=== PATIENT | female | born 1965 | race Caucasian/White ===

== ENCOUNTER 2017-02-14 11:25 | Inpatient (IN) | payer OTHER ==
--- NOTE | 2017-02-14 12:08 | PDOC ---
*Physical Exam - Vital Signs Last Vital Signs Temp Pulse Resp BP Pulse Ox 98.0 F 86 20 206/109 100 02/14/17 11:39 02/14/17 11:39 02/14/17 11:39 02/14/17 11:39 02/14/17 11:39
--- NOTE | 2017-02-14 13:10 | PDOC ---
History of Present Illness - General History Source: Patient Exam Limitations: No Limitations - History of Present Illness Travel History: No Initial Comments: 02/14/17 13:07 51 yr female with c/o "bloating" for one week. Pt denies fever neg NVD. neg abdominal surgeries. Pt has DM, obesity, high cholesterol. Pt denies travel. 02/14/17 13:12 Timing/Duration: reports: constant Quality: reports: mild Abdominal Pain Onset Location: reports: generalized abdomen Pain Radiation: reports: no radiation Activities at Onset: reports: none <Marisol Hughes - Last Filed: 02/14/17 18:59> <Orquidea Cavanaugh - Last Filed: 02/14/17 23:42> - General Chief Complaint: Pain Stated Complaint: BLOATED, ABD PAIN Time Seen by Provider: 02/14/17 11:58 Past History - Past Medical History Asthma: No Cardiac Disorders: No Diabetes: Yes HTN: Yes - Surgical History Abdominal Surgery: Yes - Suicide/Smoking/Psychosocial Hx Smoking Status: No Smoking History: Never smoked Number of Cigarettes Smoked Daily: 0 Hx Alcohol Use: No Drug/Substance Use Hx: No Substance Use Type: None <Marisol Hughes - Last Filed: 02/14/17 18:59> <Orquidea Cavanaugh - Last Filed: 02/14/17 23:42> - Past Medical History Allergies/Adverse Reactions: Allergies Allergy/AdvReac Type Severity Reaction Status Date / Time No Known Allergies Allergy Verified 02/14/17 11:42 Home Medications: Ambulatory Orders Aspirin [ASA -] 81 mg PO DAILY 06/07/15 Chlorthalidone [Hygroton -] 25 mg PO DAILY 06/07/15 Glipizide [Glucotrol -] 5 mg PO BID 06/07/15 Ibuprofen [Motrin -] 800 mg PO TID PRN 06/07/15 Metformin HCl [Metformin HCl ER] 1,000 mg PO BID 06/07/15 Ramipril [Altace] 10 mg PO DAILY 06/07/15 Amlodipine Besylate [Norvasc -] 10 mg PO DAILY #30 tablet 06/11/15 Clindamycin [Cleocin -] 300 mg PO Q6HPO #40 capsule 06/11/15 Abd/GI Specific PMHX - Complaint Specific PMHX Colitis: No Diverticulitis: No Gall Bladder Disease: No GERD: No Hepatitis: No Irritable Bowel Synd (IBS): No Pancreatitis: No GI Ulcer Disease: No <Marisol Hughes - Last Filed: 02/14/17 18:59> Review of Systems - Review of Systems Able to Perform ROS?: Yes Is the patient limited Wolof proficient: No Constitutional: No: Symptoms Reported HEENTM: No: Symptoms Reported, Dental Problems Respiratory: No: Symptoms reported Cardiac (ROS): No: Symptoms Reported ABD/GI: Yes: Symptoms Reported, See HPI <Marisol Hughes - Last Filed: 02/14/17 18:59> *Physical Exam - Vital Signs Last Vital Signs Temp Pulse Resp BP Pulse Ox 98.0 F 86 20 206/109 100 02/14/17 11:39 02/14/17 11:39 02/14/17 11:39 02/14/17 11:39 02/14/17 11:39 - Physical Exam General Appearance: Yes: Nourished, Appropriately Dressed HEENT: positive: EOMI, ELLA, Normal ENT Inspection, TMs Normal, Pharynx Normal Neck: positive: Supple. negative: Tender Respiratory/Chest: positive: Lungs Clear, Normal Breath Sounds. negative: Chest Tender Cardiovascular: positive: Regular Rhythm, Regular Rate Gastrointestinal/Abdominal: positive: Protuberent, Distended. negative: Flat, Rebound Lymphatic: negative: Adenopathy Musculoskeletal: positive: Normal Inspection Extremity: positive: Normal Capillary Refill, Normal Inspection, Normal Range of Motion Integumentary: positive: Normal Color, Dry, Warm Neurologic: positive: Fully Oriented, Alert, Normal Mood/Affect, Normal Response , Motor Strength 5/5 <Marisol Hughes - Last Filed: 02/14/17 18:59> - Vital Signs Last Vital Signs Temp Pulse Resp BP Pulse Ox 98.0 F 86 20 206/109 100 02/14/17 11:39 02/14/17 11:39 02/14/17 11:39 02/14/17 11:39 02/14/17 11:39 <Orquidea Cavanaugh - Last Filed: 02/14/17 23:42> ED Treatment Course - LABORATORY CBC & Chemistry Diagram: 02/14/17 12:50 02/14/17 12:50 <Marisol Hughes - Last Filed: 02/14/17 18:59> - LABORATORY CBC & Chemistry Diagram: 02/14/17 12:50 02/14/17 12:50 - ADDITIONAL ORDERS Additional order review: Laboratory Results 02/14/17 02/14/17 02/14/17 18:50 17:00 12:50 Sodium 138 Potassium 4.7 D Chloride 108 H Carbon Dioxide 26 Anion Gap 4 L BUN 13 D Creatinine 0.5 L D Creat Clearance w eGFR > 60 Random Glucose 126 H Calcium 7.9 L Total Bilirubin 1.2 H D AST 70 H D ALT 37 Alkaline Phosphatase 198 H D Total Protein 7.0 Albumin 2.5 L Lipase 64 L Serum , Qual Negative Urine Color Cancelled Urine Appearance Cancelled Urine pH Cancelled Ur Specific [place] Cancelled Urine Protein Cancelled Urine Glucose (UA) Cancelled Urine Ketones Cancelled Urine Blood Cancelled Urine Nitrite Cancelled Urine Bilirubin Cancelled Urine Urobilinogen Cancelled Ur Leukocyte Esterase Cancelled 02/14/17 12:50 RBC 3.89 MCV 96.2 H MCHC 33.2 RDW 15.1 D MPV 8.4 Neutrophils % 59.3 D Lymphocytes % 30.6 D Monocytes % 8.4 Eosinophils % 1.3 Basophils % 0.4 <Orquidea Cavanaugh - Last Filed: 02/14/17 23:42> Medical Decision Making - Medical Decision Making 02/14/17 13:15 cc: "abdominal bloating" last BM yesterday denies nvd no fever or chills pt denies history of liver disease, pt is a NIDDM. pt denies NVD will check labs CT abdomen 02/14/17 17:31 pt denies pain states she is comfortable. BP 170/98 left arm HR 67 RR16 02/14/17 18:[address] 02/14/17 18:59 <Marisol Hughes - Last Filed: 02/14/17 18:59> *DC/Admit/Observation/Transfer <Marisol Hughes - Last Filed: 02/14/17 18:59> <Orquidea Cavanaugh - Last Filed: 02/14/17 23:42> Diagnosis at time of Disposition: Hepatic cirrhosis Qualifiers: Hepatic cirrhosis type: unspecified hepatic cirrhosis Ascites presence: with ascites Qualified Code(s): K74.60 - Unspecified cirrhosis of liver - Referrals - Patient Instructions
[2017-02-14 13:33] LABS: BASOPHIL 0.4 % (0-2.0); EOSINOPHIL 1.3 % (0-4.5); MCH 31.9 pg (25.7-33.7); MCHC 33.2 g/dl (32.0-36.0); MEAN CELL VOLUME 96.2 fl (80-96); MEAN PLT VOLUME 8.4 fl (7.5-11.1); NEUTROPHILS 59.3 % (42.8-82.8); PLATELET COUNT 150 K/MM3 (134-434); RDW 15.1 % (11.6-15.6); WHITE BLOOD COUNT 3.7 K/mm3 (4.0-10.0)
[2017-02-14 14:51] LABS: ALBUMIN 2.5 g/dl (3.4-5.0); ANION GAP 4 (8-16); CALCIUM 7.9 mg/dL (8.5-10.1); CO2 26 mmol/L (21-32); GLUCOSE,RANDOM 126 mg/dL (74-106)
[2017-02-14 14:55] LABS: ALK PHOS 198 U/L (45-117); BILIRUBIN,TOTAL 1.2 mg/dL (0.2-1.0); CREATININE 0.5 mg/dL (0.55-1.02); SGPT/ALT 37 U/L (12-78)
[2017-02-14 15:03] LABS: SGOT/AST 70 U/L (15-37)
--- NOTE | 2017-02-14 19:25 | PDOC ---
*Physical Exam - Vital Signs Last Vital Signs Temp Pulse Resp BP Pulse Ox 98.0 F 86 20 206/109 100 02/14/17 11:39 02/14/17 11:39 02/14/17 11:39 02/14/17 11:39 02/14/17 11:39 - Physical Exam Comments: 02/14/17 19:24 Sign-out received from outgoing ER provider Saul. Pt interviewed and examined. At this time patient reports that she is completely asymptomatic with no abdominal pain, shortness of breath, chest pain , palpitations, nausea, vomiting. Patient has no complaints. Ancillary studies reviewed. Awaiting CT. Laboratory Tests 02/14/17 02/14/17 12:50 12:50 WBC 3.7 L D Total Bilirubin 1.2 H D Albumin 2.5 L 02/14/17 19:56 CT results: Hepatic cirrhosis is identified with an associated large amount of ascites. Varices are noted as well as mild splenomegaly. Concentric subcutaneous edema is visualized at the level of the abdomen and pelvis. There is equivocal mild concentric wall edema along the length of the ascending colon - ? artifactual due to underdistention. ? Possible infectious/ inflammatory colitis, ? colopathy (secondary to previously described hepatic disease). Cholelithiasis is seen without obvious CT evidence of acute cholecystitis. Read by Jeffrey Ram MD. Patient noted to have 206/109 BP on arrival (8 hours prior). Repeat BP at this time is 173/78. Discussed case with on-call MD Pereira (covering for PCP MD Rebolledo), who accepts patient to med/surg inpatient services under Dr. Rebolledo. ED Treatment Course - LABORATORY CBC & Chemistry Diagram: 02/14/17 12:50 02/14/17 12:50 - ADDITIONAL ORDERS Additional order review: Laboratory Results 02/14/17 02/14/17 02/14/17 18:50 17:00 12:50 Sodium 138 Potassium 4.7 D Chloride 108 H Carbon Dioxide 26 Anion Gap 4 L BUN 13 D Creatinine 0.5 L D Creat Clearance w eGFR > 60 Random Glucose 126 H Calcium 7.9 L Total Bilirubin 1.2 H D AST 70 H D ALT 37 Alkaline Phosphatase 198 H D Total Protein 7.0 Albumin 2.5 L Lipase 64 L Serum , Qual Negative Urine Color Cancelled Urine Appearance Cancelled Urine pH Cancelled Ur Specific [place] Cancelled Urine Protein Cancelled Urine Glucose (UA) Cancelled Urine Ketones Cancelled Urine Blood Cancelled Urine Nitrite Cancelled Urine Bilirubin Cancelled Urine Urobilinogen Cancelled Ur Leukocyte Esterase Cancelled 02/14/17 12:50 RBC 3.89 MCV 96.2 H MCHC 33.2 RDW 15.1 D MPV 8.4 Neutrophils % 59.3 D Lymphocytes % 30.6 D Monocytes % 8.4 Eosinophils % 1.3 Basophils % 0.4 *DC/Admit/Observation/Transfer Diagnosis at time of Disposition: Hepatic cirrhosis Qualifiers: Hepatic cirrhosis type: unspecified hepatic cirrhosis Ascites presence: with ascites Qualified Code(s): K74.60 - Unspecified cirrhosis of liver - Discharge Dispostion Admit: Yes - Referrals - Patient Instructions - Post Discharge Activity
[2017-02-14] MEDS ORDERED: METRONIDAZOLE 500 MG PREMIXED 100 ML IVPB ONE ×2 (20:27→22:46)
[2017-02-14] MEDS ORDERED: CIPROFLOXACIN 400 MG/D5W 200 ML IVPB ONE (20:27)
[2017-02-15] MEDS ORDERED: KETOROLAC TROMETHAMINE 30 MG/1 ML VIAL IVPUSH ONE (05:14)
[2017-02-15] MEDS ORDERED: KETOROLAC TROMETHAMINE 30 MG/1 ML VIAL ONE (05:15)
--- NOTE | 2017-02-15 09:52 | CON.GI ---
Consult Consult Specialty:: GI: Dr. Epps for Dr. Denny Referred by:: Dr. Miladis Rebolledo Reason for Consultation:: Ascites - History of Present Illness Chief Complaint: [employer]: [id number] utilized: "my stomach was inflamed" History of Present Illness: 51 y/o F admitted through [facility] for evaluation of abdominal bloating. She states that it has been occurring for 1 week and has never occurred before. she denies any abdominal pain, fevers, chills, nausea, vomiting, change in bowel habits, unintentional weight loss. ER work-up revealed abnormal liver chemistries and CT scan of the abd/pelvis revealed a large amount of ascites and a cirrhotic appearing liver. She denies a personal history of liver disease , alcohol/IVDA, blood transfusions, family history of liver disease. She is from [place] and has been living in the [place] for 20 years. There has been no recent travel. She was admitted to [facility] in 2016 for treatment of a left sided abdominal wall abscess, at which time ahe was noted to have elevated ALP/AST and have a low albumin. There is no previous abdominal imaging at [facility] to to review. She has never had an upper endoscopy or colonoscopy. There is no family history of colorectal cancer or other GI malignancy. 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 (year): History of Recent Travel: No Home Medications - Allergies Allergies/Adverse Reactions: Allergies Allergy/AdvReac Type Severity Reaction Status Date / Time No Known Allergies Allergy Verified 02/14/17 11:42 - Home Medications Home Medications: Ambulatory Orders Aspirin [ASA -] 81 mg PO DAILY 06/07/15 Chlorthalidone [Hygroton -] 25 mg PO DAILY 06/07/15 Glipizide [Glucotrol -] 5 mg PO BID 06/07/15 Ibuprofen [Motrin -] 800 mg PO TID PRN 06/07/15 Metformin HCl [Metformin HCl ER] 1,000 mg PO BID 06/07/15 Ramipril [Altace] 10 mg PO DAILY 06/07/15 Amlodipine Besylate [Norvasc -] 10 mg PO DAILY #30 tablet 06/11/15 Clindamycin [Cleocin -] 300 mg PO Q6HPO #40 capsule 06/11/15 Family Disease History - Family Disease History Family Disease History: Other: Father ( 78 "natural causes"), Mother (: 65: "Natural causes"), Brother (2, healthy), Sister (2, healthy), Son (3, healthy) Other Family History: Other family history as noted in HPI Review of Systems - Review of Systems Constitutional: denies: Chills, Malaise, Unintentional Wgt. Loss Cardiovascular: reports: Edema. denies: Chest Pain Respiratory: denies: SOB Gastrointestinal: reports: Bloating. denies: Abdominal Pain, Constipation, Diarrhea, Dysphagia, Indigestion, Melena, Nausea, Rectal Bleeding, Vomiting, Vomiting Blood Physical Exam-GI Vital Signs: Vital Signs Temperature 98.1 F 02/15/17 05:08 Pulse Rate 67 02/15/17 06:53 Respiratory Rate 18 02/15/17 06:53 Blood Pressure 102/75 02/15/17 06:53 O2 Sat by Pulse Oximetry (%) 97 02/15/17 06:53 Constitutional: Yes: Calm Eyes: No: Sclera Icterus Cardiovascular: Yes: Regular Rate and Rhythm, Murmur (2/6 systolic murmur at the RSB>LSB) Respiratory: Yes: Diminished (at bases bilaterally) Gastrointestinal Inspection: Yes: Distention, Scars (circumferential scar right upper abdomen, left upper abdomen and pelvis), Other (abdominal wall edema along lower abdomen) ...Auscultate: Yes: Normoactive Bowel Sounds ...Palpate: No: Hepatomegaly, Splenomegaly, Tenderness Edema: Yes Edema: LLE: 1+ (foot to below knee), RLE: 1+ (foor to below knee) Neurological: Yes: Alert, Oriented. No: [employer]ix[employer] Labs: CBC, BMP 02/14/17 12:50 02/14/17 12:50 Hepatic Panel Total Bilirubin 1.2 mg/dL (0.2-1.0) H D 02/14/17 12:50 AST 70 U/L (15-37) H D 02/14/17 12:50 ALT 37 U/L (12-78) 02/14/17 12:50 Alkaline Phosphatase 198 U/L (45-117) H D 02/14/17 12:50 Albumin 2.5 g/dl (3.4-5.0) L 02/14/17 12:50 MELDNa: 9 Imaging - Results Cat Scan: Report Reviewed, Image Reviewed Problem List - Problems (1) Ascites Assessment/Plan: New onset ascites: abnormal liver chemistries in the past / present along with hypoalbuminemia and imaging all supportive of liver cirrhosis. Unclear etiology as of yet. ? FISHER given other comorbidities. Infectious etiologies / autoimmune processes in differential as well. Plan for now: Diagnostic / therapeutic paracentesis with fluid sent for culture, cell count, AFB culture/smear, cytology, total protein, albumin, LDH,Glucose 2g Low Na diet Hepatitis Serologies for hep A/B/C ordered with continued outpatient work-up Will need Q 6 month Hepatic US to screen for HCC Discussed plan with Dr. Rebolledo Discussed the findings with Ms. 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 She is aware that she will need continued follow-up. She should also ideally be evaluated for liver transplantation given her decompensated cirrhosis however her citizenship status may be prohibitive. this will need to be looked into further. Code(s): R18.8 - OTHER ASCITES Qualifiers: Ascites type: other type Qualified Code(s): R18.8 - Other ascites; R18.8 - Other ascites
[2017-02-15 12:16] LABS: INR 1.08 (0.82-1.09); PROTHROMBIN TIME (PATIENT) 12.2 SEC (9.98-11.88)
[2017-02-15 12:19] LABS: ACTIVATED PTT 30.5 SECONDS (26.9-34.4)
--- NOTE | 2017-02-15 12:58 | EKG ---
Test Reason : Blood Pressure : / mmHG Vent. Rate : 077 BPM Atrial Rate : 077 BPM P-R Int : 174 ms QRS Dur : 088 ms QT Int : 432 ms P-R-T Axes : 019 011 -03 degrees QTc Int : 488 ms NORMAL SINUS RHYTHM NONSPECIFIC T WAVE ABNORMALITY ABNORMAL ECG WHEN COMPARED WITH ECG OF 07-JUN-2015 18:03, NONSPECIFIC T WAVE ABNORMALITY, WORSE IN INFERIOR LEADS Confirmed by JULIA DOLAN, NUBIA ([id number]) on 02/15/2017 12:57:54 PM Referred By: Confirmed By:NUBIA DUMONT MD
--- NOTE | 2017-02-15 14:11 | HP ---
DATE OF ADMISSION: 02/15/2017 HISTORY OF PRESENT ILLNESS: This is a patient known to have hypertension, diabetes, came to the emergency room last night with complaints of abdominal distention. In the emergency room it was found out that the patient had ascites and esophageal varices and enlarged spleen. The patient was therefore admitted with the diagnosis of possible cirrhosis of the liver. PAST MEDICAL HISTORY: History of cirrhosis in the past. SOCIAL HISTORY: The patient is with children and she lives with her . PHYSICAL EXAMINATION: Vital signs: Blood pressure is 130/80, pulse 88, respirations 20, temperature 98. General: Alert and oriented, minimal distress with increased abdominal girth. HEENT: Unremarkable. Neck: Supple, no JVD. Lungs: Clear. Heart: S1, S2 normal. No S3 or S4. Abdomen: Distended, no tenderness. Extremities: Legs with minimal edema present. LABORATORY DATA: Labs are reviewed. Chest x-ray to be reviewed. IMPRESSION: Ascites, possible cirrhosis of the liver, diabetes. PLAN: Admit to regular floor, GI consultation, continue her present medication. Will follow. Sherri [id number]
[2017-02-15 18:58] VITALS: BMI 42.5
[2017-02-16 01:19] LABS: URINE APPEARANCE SLCLOUDY; URINE BILIRUBIN NEGATIVE (NEGATIVE); URINE BLOOD NEGATIVE (NEGATIVE); URINE COLOR YELLOW; URINE GLUCOSE (UA) NEGATIVE (NEGATIVE); URINE KETONE NEGATIVE (NEGATIVE); URINE NITRITE NEGATIVE (NEGATIVE); URINE UROBILINOGEN 4.0 E.U/dl mg/dL (0.2-1.0)
[2017-02-16 01:37] LABS: URINE PROTEIN 1+ (NEGATIVE)
[2017-02-16 02:12] LABS: URINE BACTERIA RARE /hpf (NONE SEEN); URINE RBC <1 /hpf (0-3)
[2017-02-16] MEDS: metFORMIN HCL 500 MG TABLET (FP) PO SCH ×2 (06:05→16:48)
[2017-02-16] MEDS: glipiZIDE 5 MG TABLET (FP) PO SCH ×2 (06:06→16:49)
[2017-02-16 09:22] LABS: PERITONEAL FLUID LYMPHOCYTE 52 %; PERITONEAL FLUID MACROPHAGE 41 %; PERITONEAL FLUID MESOTHELIAL 1 %; PERITONEAL FLUID NEUTROPHIL 6 %
[2017-02-16 09:33] LABS: URINE WBC 1 /hpf (3-5)
--- NOTE | 2017-02-16 09:36 | PN ---
Progress Note, Physician Chief Complaint: Feels better History of Present Illness: Admitted with massive ascitis Diabetics and HTN Dr Calvert.s GI consult appreciated - Current Medication List Current Medications: Active Medications Amlodipine Besylate (Norvasc -) 10 mg PO DAILY [facility] Furosemide (Lasix -) 40 mg PO DAILY [facility] Glipizide (Glucotrol -) 5 mg PO BID@0700,1630 [facility] Last Admin: 02/16/17 06:06 Dose: 5 mg Metformin HCl (Glucophage -) 1,000 mg PO BID@0700,1630 [facility] Last Admin: 02/16/17 06:05 Dose: 1,000 mg Ramipril (Altace -) 10 mg PO DAILY [facility] Spironolactone (Aldactone -) 100 mg PO DAILY [facility] - Objective Vital Signs: Vital Signs Temperature 98.4 F 02/16/17 06:40 Pulse Rate 78 02/16/17 06:40 Respiratory Rate 20 02/16/17 06:40 Blood Pressure 122/61 02/16/17 06:40 O2 Sat by Pulse Oximetry (%) 98 02/15/17 22:00 Constitutional: Yes: Calm Eyes: Yes: WNL HENT: Yes: WNL Neck: Yes: WNL Cardiovascular: Yes: WNL Respiratory: Yes: WNL Gastrointestinal: Yes: Ascites, Hepatomegaly, Splenomegaly ...Rectal Exam: Yes: Deferred Genitourinary: Yes: WNL Breast(s): Yes: WNL Musculoskeletal: Yes: WNL Edema: No Neurological: Yes: Alert Labs: INR, PTT INR 1.08 (0.82-1.09) 02/15/17 11:58 Assessment/Plan continue present meds Will discuss with Dr Roberto
[2017-02-16 09:41] LABS: URINE LEUK ESTERASE Negative (NEGATIVE)
[2017-02-16] MEDS: SPIRONOLACTONE 25 MG TABLET (FP) PO SCH (10:36)
[2017-02-16] MEDS: RAMIPRIL 5 MG CAPSULE (FP) PO SCH (10:36)
[2017-02-16] MEDS: FUROSEMIDE 40 MG TABLET (FP) PO SCH (10:36)
[2017-02-16] MEDS: amLODIPine BESYLATE 10 MG TABLET (FP) PO SCH (10:36)
[2017-02-16 11:11] LABS: BASOPHIL 0.4 % (0-2.0); EOSINOPHIL 2.1 % (0-4.5); MCH 31.6 pg (25.7-33.7); MCHC 32.8 g/dl (32.0-36.0); MEAN CELL VOLUME 96.3 fl (80-96); MEAN PLT VOLUME 7.6 fl (7.5-11.1); NEUTROPHILS 51.8 % (42.8-82.8); PLATELET COUNT 140 K/MM3 (134-434); WHITE BLOOD COUNT 3.1 K/mm3 (4.0-10.0)
[2017-02-16 11:44] LABS: ALBUMIN 2.3 g/dl (3.4-5.0); BILIRUBIN,DIRECT 0.4 mg/dL (0.0-0.2); BILIRUBIN,TOTAL 0.7 mg/dL (0.2-1.0); TOT PROT 6.8 g/dl (6.4-8.2)
--- NOTE | 2017-02-16 13:44 | PN ---
GI Progress Note Subjective: For Dr. Denny No acute events No abdominal pain States feeling well S/P Paracentesis yesterday: ? 4 L removed Peritoneal fluid analysis reviewed below - Objective Vital Signs: Vital Signs Temperature 98 F 02/16/17 10:00 Pulse Rate 73 02/16/17 10:00 Respiratory Rate 18 02/16/17 10:00 Blood Pressure 147/86 02/16/17 10:00 O2 Sat by Pulse Oximetry (%) 99 02/16/17 09:00 Constitutional: Calm Eyes: No: Sclera Icterus Cardiovascular: Yes: Regular Rate and Rhythm, Murmur Respiratory: Yes: CTA Bilaterally Gastrointestinal Inspection: Yes: Distention, Other (Large Pannus) ...Auscultate: Yes: Normoactive Bowel Sounds ...Palpate: No: Hepatomegaly, Splenomegaly, Tenderness ...Percussion: No: Tympanitic Edema: Yes Edema: LLE: 1+, RLE: 1+ Neurological: No: [employer] Labs: CBC, BMP 02/16/17 10:50 INR, PTT INR 1.08 (0.82-1.09) 02/15/17 11:58 Laboratory Tests 02/15/17 15:00 Peritoneal WBC 271 Peritoneal RBC 517 Periton Neutrophils 6 Periton Lymphocytes 52 Periton Mesothelial 1 Periton Macrophages 41 Peritoneal Tot Protein 2 Peritoneal Albumin 1 Peritoneal LDH 82 Peritoneal Glucose 112 Peritoneal Amylase 14 Peritoneal Triglycerid 46 SAA.5 ANC: 16 Hepatic Panel Total Bilirubin 0.7 mg/dL (0.2-1.0) D 02/16/17 10:50 Direct Bilirubin 0.4 mg/dL (0.0-0.2) H 02/16/17 10:50 AST 68 U/L (15-37) H 02/16/17 10:50 ALT 39 U/L (12-78) 02/16/17 10:50 Alkaline Phosphatase 204 U/L (45-117) H 02/16/17 10:50 Albumin 2.3 g/dl (3.4-5.0) L 02/16/17 10:50 Laboratory Tests 02/16/17 06:00 Tumor Marker AFP Pending Microbiology 02/15/17 15:00 Peritoneal Fluid BETH Preparation - Preliminary 02/15/17 15:00 Peritoneal Fluid Fungal Culture - Preliminary 02/15/17 15:00 Peritoneal Fluid AFB Smear Concentration - Preliminary 02/15/17 15:00 Peritoneal Fluid Mycobacterial Culture - Preliminary - ....Imaging Other: Report Reviewed Problem List - Problems (1) Ascites Assessment/Plan: Peritoneal fluid analysis consistent with portal hypertension as likely etiology No evidence of neutrocytic SBP. Await Culture Follow-up remaining fluid studies including cytology Follow-up AFP tumor marker Hep C Ab was ordered yesterday however not drawn. I reordered the Hep C Ab Daily weights/ I's and O's. Started in diuresis today Stressed 2g Low Na diet to patient Will need Q 6 month Liver US / AFP tumor marker to screen for HCC Will need outpatient follow-up: Dr. Denny's office information was added to discharge plan Dr. Denny will be covering the patient this evening. Dr. Esqueda will be covering the remainder of the weekend. [phone] Code(s): R18.8 - OTHER ASCITES Qualifiers: Ascites type: other type Qualified Code(s): R18.8 - Other ascites; R18.8 - Other ascites
[2017-02-17] MEDS: metFORMIN HCL 500 MG TABLET (FP) PO SCH ×2 (06:19→17:04)
[2017-02-17] MEDS: glipiZIDE 5 MG TABLET (FP) PO SCH ×2 (06:20→17:03)
[2017-02-17] MEDS: amLODIPine BESYLATE 10 MG TABLET (FP) PO SCH (09:58)
[2017-02-17] MEDS: RAMIPRIL 5 MG CAPSULE (FP) PO SCH (09:58)
[2017-02-17] MEDS: SPIRONOLACTONE 25 MG TABLET (FP) PO SCH (09:58)
[2017-02-17] MEDS: FUROSEMIDE 40 MG TABLET (FP) PO SCH (09:58)
[2017-02-18] MEDS: glipiZIDE 5 MG TABLET (FP) PO SCH ×2 (06:21→17:34)
[2017-02-18] MEDS: metFORMIN HCL 500 MG TABLET (FP) PO SCH (06:21)
[2017-02-18] MEDS ORDERED: POTASSIUM CHLORIDE ORAL LIQUID 20 MEQ/15 ML PO ONE ×3 (08:25→09:00)
--- NOTE | 2017-02-18 08:30 | PN ---
Progress Note, Physician Chief Complaint: No new complaints denies any nausea, vomiting diarrhea or constipation. History of Present Illness: 51 yrs old f with morbid obesity h/o HTN, T2DM and Dyslipedemia admitted with massive ascites of unknown etiology. underwent therapeutic paracentesis by GI. - Current Medication List Current Medications: Active Medications Amlodipine Besylate (Norvasc -) 10 mg PO DAILY [facility] Last Admin: 02/17/17 09:58 Dose: 10 mg Furosemide (Lasix -) 40 mg PO DAILY [facility] Last Admin: 02/17/17 09:58 Dose: 40 mg Glipizide (Glucotrol -) 5 mg PO BID@0700,1630 [facility] Last Admin: 02/18/17 06:21 Dose: 5 mg Metformin HCl (Glucophage -) 1,000 mg PO BID@0700,1630 [facility] Last Admin: 02/18/17 06:21 Dose: 1,000 mg Ramipril (Altace -) 10 mg PO DAILY [facility] Last Admin: 02/17/17 09:58 Dose: 10 mg Spironolactone (Aldactone -) 100 mg PO DAILY [facility] Last Admin: 02/17/17 09:58 Dose: 100 mg - Objective Vital Signs: Vital Signs Temperature 98.2 F 02/18/17 06:00 Pulse Rate 78 02/18/17 06:00 Respiratory Rate 20 02/18/17 06:00 Blood Pressure 140/78 02/18/17 06:00 O2 Sat by Pulse Oximetry (%) 96 02/17/17 21:00 Middle aged woman not in distress denies any abd pain , nausea or vomiting HEENT: Mm moist, no anemia, PERRLA, EOMI NECK: No JVD No Bruit CHEST: CTA B/L ABD: Distention +, Soft, non tender Bs + EXT: Edema feet +, no calf tenderness, Pulses +2 [employer]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 focal Labs: CBC, BMP 02/16/17 10:50 INR, PTT INR 1.08 (0.82-1.09) 02/15/17 11:58 Problem List - Problems (1) Ascites Assessment/Plan: Patient present with massiveascites underwent diagnostic and therapeutic paracentesis 4 Ltrs removed no SBP , most likely FISHER due to morbid ocesity F/U pending W/U cont Aldactone and Lasix F/U BMP daily, low Na Diet Code(s): R18.8 - OTHER ASCITES Qualifiers: Ascites type: other type Qualified Code(s): R18.8 - Other ascites; R18.8 - Other ascites (2) HTN (hypertension) Assessment/Plan: Well controlled cont current medications Code(s): I10 - ESSENTIAL (PRIMARY) HYPERTENSION Qualifiers: Hypertension type: essential hypertension Qualified Code(s): I10 - Essential (primary) hypertension; I10 - Essential (primary) hypertension; I10 - Essential (primary) hypertension (3) T2DM (type 2 diabetes mellitus) Assessment/Plan: at present FS are controlled F/U HbA!C Hold Metformin whilein the Hospital f/u FS Code(s): E11.9 - TYPE 2 DIABETES MELLITUS WITHOUT COMPLICATIONS (4) Morbid obesity with BMI of 40.0-44.9, adult Assessment/Plan: Nutrition consult as out patient Code(s): E66.01 - MORBID (SEVERE) OBESITY DUE TO EXCESS CALORIES Z68.41 - BODY MASS INDEX (BMI) 40.0-44.9, ADULT
--- NOTE | 2017-02-18 08:37 | PN ---
Progress Note, Physician Chief Complaint: No new complaints denies any nausea, vomiting diarrhea or constipation. History of Present Illness: 51 yrs old f with morbid obesity h/o HTN, T2DM and Dyslipedemia admitted with massive ascites of unknown etiology. underwent therapeutic paracentesis by GI. - Current Medication List Current Medications: Active Medications Amlodipine Besylate (Norvasc -) 10 mg PO DAILY [facility] Last Admin: 02/17/17 09:58 Dose: 10 mg Furosemide (Lasix -) 40 mg PO DAILY [facility] Last Admin: 02/17/17 09:58 Dose: 40 mg Glipizide (Glucotrol -) 5 mg PO BID@0700,1630 [facility] Last Admin: 02/18/17 06:21 Dose: 5 mg Potassium Chloride (Potassium Chloride Oral Liquid) 40 meq PO ONCE ONE Stop: 02/18/17 08:27 Ramipril (Altace -) 10 mg PO DAILY [facility] Last Admin: 02/17/17 09:58 Dose: 10 mg Spironolactone (Aldactone -) 100 mg PO DAILY [facility] Last Admin: 02/17/17 09:58 Dose: 100 mg - Objective Vital Signs: Vital Signs Temperature 98.2 F 02/18/17 06:00 Pulse Rate 78 02/18/17 06:00 Respiratory Rate 20 02/18/17 06:00 Blood Pressure 140/78 02/18/17 06:00 O2 Sat by Pulse Oximetry (%) 96 02/17/17 21:00 Labs: CBC, BMP 02/16/17 10:50 INR, PTT INR 1.08 (0.82-1.09) 02/15/17 11:58 Problem List - Problems (1) Ascites Assessment/Plan: Patient present with massiveascites underwent diagnostic and therapeutic paracentesis 4 Ltrs removed no SBP , most likely FISHER due to morbid ocesity F/U pending W/U cont Aldactone and Lasix F/U BMP daily, low Na Diet Code(s): R18.8 - OTHER ASCITES Qualifiers: Ascites type: other type Qualified Code(s): R18.8 - Other ascites; R18.8 - Other ascites (2) HTN (hypertension) Assessment/Plan: Well controlled cont current medications Code(s): I10 - ESSENTIAL (PRIMARY) HYPERTENSION Qualifiers: Hypertension type: essential hypertension Qualified Code(s): I10 - Essential (primary) hypertension; I10 - Essential (primary) hypertension; I10 - Essential (primary) hypertension (3) T2DM (type 2 diabetes mellitus) Assessment/Plan: at present FS are controlled F/U HbA1C Hold Metformin while in the Hospital f/u FS Code(s): E11.9 - TYPE 2 DIABETES MELLITUS WITHOUT COMPLICATIONS (4) Morbid obesity with BMI of 40.0-44.9, adult Assessment/Plan: Nutrition consult as out patient Code(s): E66.01 - MORBID (SEVERE) OBESITY DUE TO EXCESS CALORIES Z68.41 - BODY MASS INDEX (BMI) 40.0-44.9, ADULT (5) Hypokalemia Assessment/Plan: Repleted F/U BMP and magnesium level. Code(s): E87.6 - HYPOKALEMIA
[2017-02-18 08:47] LABS: URINE APPEARANCE CLOUDY; URINE BILIRUBIN NEGATIVE (NEGATIVE); URINE BLOOD 1+ (NEGATIVE); URINE COLOR DKYELLOW; URINE GLUCOSE (UA) NEGATIVE (NEGATIVE); URINE KETONE TRACE (NEGATIVE); URINE NITRITE NEGATIVE (NEGATIVE); URINE UROBILINOGEN NEGATIVE mg/dL (0.2-1.0)
[2017-02-18 08:58] LABS: URINE PROTEIN 2+ (NEGATIVE)
[2017-02-18 09:08] LABS: URINE HYALINE CAST 6 /lpf; URINE MUCUS RARE; URINE RBC 1 /hpf (0-3); URINE WBC 4 /hpf (3-5)
[2017-02-18] MEDS: RAMIPRIL 5 MG CAPSULE (FP) PO SCH (10:01)
[2017-02-18] MEDS: SPIRONOLACTONE 25 MG TABLET (FP) PO SCH (10:01)
[2017-02-18] MEDS: amLODIPine BESYLATE 10 MG TABLET (FP) PO SCH (10:01)
[2017-02-18] MEDS: FUROSEMIDE 40 MG TABLET (FP) PO SCH (10:01)
[2017-02-18 10:30] LABS: ALBUMIN 2.2 g/dl (3.4-5.0); ALK PHOS 190 U/L (45-117); ANION GAP 9 (8-16); BILIRUBIN,TOTAL 0.9 mg/dL (0.2-1.0); CO2 22 mmol/L (21-32); CREATININE 0.6 mg/dL (0.55-1.02); GLUCOSE,RANDOM 93 mg/dL (74-106); SGOT/AST 59 U/L (15-37); SGPT/ALT 38 U/L (12-78); TOT PROT 6.2 g/dl (6.4-8.2)
[2017-02-18 14:41] LABS: URINE LEUK ESTERASE Negative (NEGATIVE)
[2017-02-19] MEDS: glipiZIDE 5 MG TABLET (FP) PO SCH (06:33)
[2017-02-19 08:17] LABS: BASOPHIL 0.7 % (0-2.0); EOSINOPHIL 3.5 % (0-4.5); MCH 31.8 pg (25.7-33.7); MCHC 33.4 g/dl (32.0-36.0); MEAN PLT VOLUME 7.7 fl (7.5-11.1); PLATELET COUNT 155 K/MM3 (134-434); RDW 15.1 % (11.6-15.6); WHITE BLOOD COUNT 3.2 K/mm3 (4.0-10.0)
[2017-02-19 08:46] LABS: ALBUMIN 2.3 g/dl (3.4-5.0); ANION GAP 6 (8-16); CALCIUM 8.3 mg/dL (8.5-10.1); CO2 25 mmol/L (21-32); GLUCOSE,RANDOM 91 mg/dL (74-106)
[2017-02-19 08:50] LABS: ALK PHOS 202 U/L (45-117); BILIRUBIN,TOTAL 1.1 mg/dL (0.2-1.0); CREATININE 0.6 mg/dL (0.55-1.02); SGOT/AST 56 U/L (15-37); SGPT/ALT 37 U/L (12-78); TOT PROT 6.6 g/dl (6.4-8.2)
[2017-02-19 08:59] VITALS: BP 118/50; PULSE 83; TEMP 98.2
[2017-02-19] MEDS: amLODIPine BESYLATE 10 MG TABLET (FP) PO SCH (09:14)
[2017-02-19] MEDS: RAMIPRIL 5 MG CAPSULE (FP) PO SCH (09:14)
[2017-02-19] MEDS: SPIRONOLACTONE 25 MG TABLET (FP) PO SCH (09:14)
[2017-02-19] MEDS: FUROSEMIDE 40 MG TABLET (FP) PO SCH (09:14)
--- NOTE | 2017-02-19 09:45 | DS ---
Physical Examination Vital Signs: Vital Signs Temperature 98.2 F 02/19/17 08:00 Pulse Rate 83 02/19/17 08:00 Respiratory Rate 18 02/19/17 08:00 Blood Pressure 118/50 02/19/17 08:00 O2 Sat by Pulse Oximetry (%) 98 02/18/17 20:34 Findings/Remarks: Admitted with massive ascitis,the diagnosis at this time is due to portal hypertention Constitutional: Yes: No Distress Eyes: Yes: WNL, Other. No: Conjunctiva Clear, EOM Intact, Cataracts, Diplopia, Occular Prosthesis (One S/P enucleation), PERRL, Ptosis, Sclera Icterus, Tearing HENT: Yes: WNL Neck: Yes: WNL Cardiovascular: Yes: WNL Respiratory: Yes: WNL Gastrointestinal: Yes: Ascites ...Rectal Exam: Yes: Deferred Renal/: Yes: WNL Breast(s): Yes: WNL Edema: LLE: 1+, RLE: 1+ Integumentary: Yes: WNL Neurological: Yes: Alert ...Motor Strength: WNL Psychiatric: Yes: Alert Labs: CBC, BMP 02/19/17 07:55 02/19/17 07:55 Discharge Summary Reason For Visit: ACITES/HEPATIC CIRRHOSIS Current Active Problems Ascites (Acute) Hepatic cirrhosis (Acute) Hypokalemia (Acute) Morbid obesity with BMI of 40.0-44.9, adult (Acute) T2DM (type 2 diabetes mellitus) (Acute) - Instructions Diet, Activity, Other Instructions: please follow with the cabin agent Dr. Denny drink pleanty of fluids to stay well hydrated and monitor your blood sugar at home please also follow with your Primary Care at the clinic at [facility] Referrals: Miladis Rebolledo MD [Staff Physician] - Gabby Denny MD [Staff Physician] - 2 Weeks - Home Medications Comprehensive Discharge Medication List: Ambulatory Orders Aspirin [ASA -] 81 mg PO DAILY 06/07/15 Chlorthalidone [Hygroton -] 25 mg PO DAILY 06/07/15 Glipizide [Glucotrol -] 5 mg PO BID 06/07/15 Ibuprofen [Motrin -] 800 mg PO TID PRN 06/07/15 Metformin HCl [Metformin HCl ER] 1,000 mg PO BID 06/07/15 Ramipril [Altace] 10 mg PO DAILY 06/07/15 Amlodipine Besylate [Norvasc -] 10 mg PO DAILY #30 tablet 06/11/15 Clindamycin [Cleocin -] 300 mg PO Q6HPO #40 capsule 06/11/15
[2017-02-19] MEDS ORDERED: IBUPROFEN 400 MG TABLET (FP) PO PRN (09:47)
[2017-02-19] MEDS ORDERED: glipiZIDE 5 MG TABLET (FP) PO SCH (10:00)
[2017-02-19] MEDS ORDERED: ASPIRIN 81 MG CHEWABLE TABLETS PO SCH (10:00)
[2017-02-19] MEDS ORDERED: amLODIPine BESYLATE 10 MG TABLET (FP) PO SCH (10:00)
[2017-02-19] MEDS ORDERED: RAMIPRIL 5 MG CAPSULE (FP) PO SCH (10:00)
[2017-02-19] MEDS ORDERED: CHLORTHALIDONE 25 MG TABLET PO SCH (10:00)
--- NOTE | 2017-02-19 14:23 | PATH ---
Cytology Non-Gynecological Report Patient Name: BENOIT KEENE [facility]. Rec. #: [id number] /Age/Gender: 1965 (Age: 51) / F Account: [id number] Location: [address] [place] [address] Taken: 02/14/2017 Received: 02/16/2017 Reported: 02/19/2017 Physicians: Joan Rojas M.D. Ketevan Vladi, M.D. Abdul Azeez, M.D. Specimen(s) Received ABDOMINAL FLUID Clinical History None given Final Diagnosis ABDOMINAL FLUID, PARACENTESIS: SATISFACTORY FOR EVALUATION BENIGN (NO MALIGNANT CELLS IDENTIFIED) MESOTHELIAL CELLS, NEUTROPHILS AND LYMPHOCYTES PRESENT. Comment: Recommend correlation with clinical findings and follow up as clinically indicated. Electronically Signed Tomas Mccormick M.D. Gross Description A. Approximately 50 cc of yellow fluid received fixed in 50% alcohol. Two cytofunnels and one cellblock prepared. B. Approximately 4000 cc of yellow fluid received fresh. Two cytofunnels and one cellblock prepared.
== END 2017-02-19 14:00 | disposition home or self-care (01) | DRG 264 ==
LOC: JER 11:25 → JERBED 20:41 → OBSVTOIN 20:41 → UNDOADMOB 22:47 → JERBED 22:47 → J6S 02-15 15:26
PROVIDERS: ADMIT Internal Medicine; ATTEND Internal Medicine
PROC: 0W9G3ZX Drainage of Peritoneal Cavity, Percutaneous Approach, Diagnostic (ICD-10-PCS; principal; 2017-02-15)
DX: K74.60 Unspecified cirrhosis of liver (principal); E66.01 Morbid (severe) obesity due to excess calories; Z68.41 Body mass index [BMI] 40.0-44.9, adult; K76.6 Portal hypertension; E11.9 Type 2 diabetes mellitus without complications; R18.8 Other ascites; E87.6 Hypokalemia; I10 Essential (primary) hypertension; E78.5 Hyperlipidemia, unspecified
CPT/HCPCS: 36415; 74177-TC; 76942-TC; 80053; 80076; 81003; 81015; 82042; 82105; 82150; 82945; 83615; 83690; 83735; 84157; 84478; 84703; 85025; 85610; 85730; 86704; 86706; 86708; 86803; 87070; 87075; 87081; 87102; 87116; 87205; 87206; 87210; 87340; 88108; 88305-TC; 89051; 93005; 93010; 93306-TC; 99284-25

== ENCOUNTER 2019-01-20 17:45 | Inpatient (IN) | payer OTHER ==
--- NOTE | 2019-01-20 21:56 | PDOC ---
*Physical Exam - Vital Signs Last Vital Signs Temp Pulse Resp BP Pulse Ox 98.4 F 68 19 140/68 100 01/20/19 17:55 01/20/19 17:55 01/20/19 17:55 01/20/19 17:55 01/20/19 17:55 ED Treatment Course - LABORATORY CBC & Chemistry Diagram: 01/20/19 23:30 01/20/19 23:30 Medical Decision Making - Medical Decision Making 01/20/19 21:56 Patient seen by the advanced practice provider under my direct supervision. Ancillary testing reviewed as necessary. I agree with plan as outlined by the advanced practice provider. *DC/Admit/Observation/Transfer Diagnosis at time of Disposition: Increased ammonia level Hepatic cirrhosis Qualifiers: Hepatic cirrhosis type: unspecified hepatic cirrhosis Ascites presence: unspecified Qualified Code(s): K74.60 - Unspecified cirrhosis of liver Ascites Qualifiers: Ascites type: other type Qualified Code(s): R18.8 - Other ascites - Referrals - Patient Instructions - Post Discharge Activity
--- NOTE | 2019-01-20 23:23 | PDOC ---
History of Present Illness - General Chief Complaint: Edema Stated Complaint: SENT BY PCP DISTENDED ABD Time Seen by Provider: 01/20/19 21:53 History Source: Patient - History of Present Illness Initial Comments: 01/20/19 23:04 53 year old female with progressive abdominal distension, dyspnea on exertion , b/l leg swelling worsening for the last 2 weeks.send by PCP for evaluation. son reports that patient had an paracentesis two years ago. PMHX: DMII, HTN, Hepatic cirrhosis with portal hypertension, abdominal abscess PCP: Dr. Jason Ortega Past History - Past Medical History Allergies/Adverse Reactions: Allergies Allergy/AdvReac Type Severity Reaction Status Date / Time No Known Allergies Allergy Verified 01/20/19 17:59 Home Medications: Ambulatory Orders Amlodipine Besylate [Norvasc -] 10 mg PO DAILY #0 tablet 02/19/17 Aspirin [ASA -] 81 mg PO DAILY #0 tab.chew 02/19/17 Furosemide [Lasix -] 40 mg PO DAILY #0 tablet 02/19/17 metFORMIN HCL [Metformin HCl ER] 1,000 mg PO BID #0 tab.er.24 02/19/17 Linagliptin/Metformin HCl [Jentadueto Xr 2.5 mg-1,000 mg] 1 each PO BID Nadolol 40 mg PO DAILY 01/21/19 Asthma: No Cardiac Disorders: No COPD: No Diabetes: Yes GI Disorders: Yes (Acsites, cirrhosis portal hypertension) HTN: Yes Liver Disease: Yes (Non-ETOH Cirrosis) Other medical history: left eyeball socket empty - Surgical History Abdominal Surgery: Yes - Suicide/Smoking/Psychosocial Hx Smoking Status: No Smoking History: Never smoked Have you smoked in the past 12 months: No Number of Cigarettes Smoked Daily: 0 Information on smoking cessation initiated: No Hx Alcohol Use: No Drug/Substance Use Hx: No Substance Use Type: None Hx Substance Use Treatment: No Review of Systems - Review of Systems Able to Perform ROS?: Yes Is the patient limited [place] proficient: No Constitutional: No: Symptoms Reported, See HPI, Chills, Diaphoresis, Fever, Loss of Appetite, Malaise, Night Sweats, Weakness, Weight Stable, Unintentional Wgt. Loss, Unexplained wgt Loss, Other ABD/GI: Yes: Abdominal Distended Musculoskeletal: Yes: Other (leg swelling) *Physical Exam - Vital Signs Last Vital Signs Temp Pulse Resp BP Pulse Ox 98.4 F 68 19 140/68 100 01/20/19 17:55 01/20/19 17:55 01/20/19 17:55 01/20/19 17:55 01/20/19 17:55 - Physical Exam General Appearance: Yes: Appropriately Dressed Respiratory/Chest: positive: Lungs Clear, Normal Breath Sounds Gastrointestinal/Abdominal: positive: Decreased BS, Other (distended abdomen) Extremity: positive: Pedal Edema (b/l) Neurologic: positive: Fully Oriented, Alert, Normal Mood/Affect ED Treatment Course - LABORATORY CBC & Chemistry Diagram: 01/20/19 23:30 01/20/19 23:30 Medical Decision Making - Medical Decision Making 01/21/19 03:06 A: liver cirrhosis with ascites P: labs CTAP GI consults inpatient management of ascites. ammonia level elevated lactulose patient signed out to Dr. sol for admission 01/21/19 05:25 CTAP" Cirrhosis with very large amount of ascites. Moderate sized fluid containing umbilical hernia Probable anasarca. Moderate left-sided and small right-sided pleural effusions. Gallstones. 01/21/19 05:25 *DC/Admit/Observation/Transfer Diagnosis at time of Disposition: Increased ammonia level Hepatic cirrhosis Qualifiers: Hepatic cirrhosis type: unspecified hepatic cirrhosis Ascites presence: unspecified Qualified Code(s): K74.60 - Unspecified cirrhosis of liver Ascites Qualifiers: Ascites type: other type Qualified Code(s): R18.8 - Other ascites - Discharge Dispostion Decision to Admit order: Yes - Referrals - Patient Instructions - Post Discharge Activity
[2019-01-20 23:49] LABS: BASO % 0.9 % (0-2.0); EOS % 4.7 % (0-4.5); HEMATOCRIT 24.9 % (32.4-45.2); HEMOGLOBIN 8.3 GM/dL (10.7-15.3); LYMPH % 28.7 % (8-40); MCH 32.8 pg (25.7-33.7); MCHC 33.2 g/dl (32.0-36.0); MEAN CELL VOLUME 98.8 fl (80-96); MEAN PLT VOLUME 7.6 fl (7.5-11.1); MONO % 12.3 % (3.8-10.2); NEUT % 53.4 % (42.8-82.8); PLATELET COUNT 227 K/MM3 (134-434); RBC 2.52 M/mm3 (3.60-5.2); RDW 14.2 % (11.6-15.6); WHITE BLOOD COUNT 3.1 K/mm3 (4.0-10.0)
[2019-01-21 00:24] LABS: INR 1.28 (0.83-1.09); PROTHROMBIN TIME (PATIENT) 15.1 SEC (9.7-13.0)
[2019-01-21 00:30] LABS: ALBUMIN 1.9 g/dl (3.4-5.0); BILIRUBIN,TOTAL 0.6 mg/dL (0.2-1); CALCIUM 7.7 mg/dL (8.5-10.1); CREATININE 0.6 mg/dL (0.55-1.3); POTASSIUM 4.5 mmol/L (3.5-5.1); TOT PROT 6.4 g/dl (6.4-8.2)
[2019-01-21] MEDS ORDERED: LACTULOSE 20 GM/30 ML UDC (FOR ORAL USE ONLY) PO ONE (00:56)
[2019-01-21] MEDS ORDERED: LACTULOSE 20 GM/30 ML UDC (FOR ORAL USE ONLY) ONE (01:49)
[2019-01-21 08:44] LABS: BASO % 0.7 % (0-2.0); EOS % 5.3 % (0-4.5); HEMATOCRIT 26.1 % (32.4-45.2); HEMOGLOBIN 8.7 GM/dL (10.7-15.3); LYMPH % 29.8 % (8-40); MCH 33.1 pg (25.7-33.7); MCHC 33.4 g/dl (32.0-36.0); MEAN CELL VOLUME 99.1 fl (80-96); MEAN PLT VOLUME 7.2 fl (7.5-11.1); NEUT % 53.2 % (42.8-82.8); PLATELET COUNT 237 K/MM3 (134-434); RBC 2.64 M/mm3 (3.60-5.2); RDW 14.2 % (11.6-15.6); WHITE BLOOD COUNT 3.2 K/mm3 (4.0-10.0)
[2019-01-21 09:15] LABS: ALBUMIN 1.9 g/dl (3.4-5.0); BILIRUBIN,TOTAL 0.8 mg/dL (0.2-1); BLOOD UREA NITROGEN 17.4 mg/dL (7-18); CALCIUM 7.8 mg/dL (8.5-10.1); CREATININE 0.6 mg/dL (0.55-1.3); POTASSIUM 4.1 mmol/L (3.5-5.1); TOT PROT 6.2 g/dl (6.4-8.2)
[2019-01-21] MEDS: NADOLOL 20 MG TABLET (FP) PO SCH (09:59)
[2019-01-21] MEDS: ASPIRIN 81 MG CHEWABLE TABLETS PO SCH (09:59)
[2019-01-21] MEDS: FUROSEMIDE 40 MG/4 ML INJECTABLE VIAL IVPUSH SCH (10:00)
[2019-01-21] MEDS: amLODIPine BESYLATE 10 MG TABLET (FP) PO SCH (10:00)
[2019-01-21] MEDS: HEPARIN NA (PORCINE) 5,000 UNITS/ML 1ML VIAL SQ SCH ×2 (10:00→21:28)
--- NOTE | 2019-01-21 10:58 | EKG ---
Test Reason : Blood Pressure : / mmHG Vent. Rate : 067 BPM Atrial Rate : 067 BPM P-R Int : 154 ms QRS Dur : 082 ms QT Int : 396 ms P-R-T Axes : 028 012 017 degrees QTc Int : 418 ms NORMAL SINUS RHYTHM NORMAL ECG WHEN COMPARED WITH ECG OF 14-FEB-2017 23:27, NONSPECIFIC T WAVE ABNORMALITY, IMPROVED IN INFERIOR LEADS NONSPECIFIC T WAVE ABNORMALITY NO LONGER EVIDENT IN ANTEROLATERAL LEADS QT HAS SHORTENED Confirmed by Bakari Iglesias ([id number]) on 01/21/2019 10:57:59 AM Referred By: Confirmed By:Bakari Iglesias
[2019-01-21] MEDS: INSULIN SLIDING SCALE (NOVOLOG) 1 VIAL SQ SCH ×3 (12:55→21:28)
--- NOTE | 2019-01-21 19:39 | HP ---
Admitting History and Physical - Admission History of Present Illness: Pt is a 53 year old female with PMH significant for cirrhosis/ascites, HTN, portal HTN and diabetes. Pt saw her PMD who referred pt to ER due to progressive abdominal distension, dyspnea on exertion , b/l leg swelling wc have worsened in the last 2 weeks.Pt's family reports that pt has not followed up for her cirrhosis/ascites and her last paracentesis was two years ago. 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 History of Recent Travel: No Home Medications - Allergies Allergies/Adverse Reactions: Allergies Allergy/AdvReac Type Severity Reaction Status Date / Time No Known Allergies Allergy Verified 01/20/19 17:59 - Home Medications Home Medications: Ambulatory Orders Amlodipine Besylate [Norvasc -] 10 mg PO DAILY #0 tablet 02/19/17 Aspirin [ASA -] 81 mg PO DAILY #0 tab.chew 02/19/17 Furosemide [Lasix -] 40 mg PO DAILY #0 tablet 02/19/17 Linagliptin/Metformin HCl [Jentadueto Xr 2.5 mg-1,000 mg] 1 each PO BID Nadolol 40 mg PO DAILY 01/21/19 Furosemide [Lasix -] 40 mg PO DAILY #30 tablet 01/27/19 Spironolactone 50 mg PO DAILY #30 tablet 01/27/19 Family Medical History Family History: Unremarkable Review of Systems - Review of Systems Constitutional: reports: Weakness Eyes: reports: No Symptoms HENT: reports: No Symptoms Neck: reports: No Symptoms Cardiovascular: reports: Shortness of Breath Respiratory: reports: SOB Physical Examination Vital Signs: Vital Signs Temperature 97.9 F 01/21/19 17:50 Pulse Rate 57 L 01/21/19 17:50 Respiratory Rate 18 01/21/19 17:54 Blood Pressure 102/48 L 01/21/19 17:50 O2 Sat by Pulse Oximetry (%) 99 01/21/19 17:54 Constitutional: Yes: Well Nourished Eyes: Yes: WNL HENT: Yes: WNL Neck: Yes: WNL, Supple Cardiovascular: Yes: WNL, Regular Rate and Rhythm Respiratory: Yes: WNL, Regular, CTA Bilaterally Gastrointestinal: Yes: Normal Bowel Sounds, Soft, Abdomen, Obese, Ascites Edema: LLE: 2+, RLE: 2+ Neurological: Yes: WNL, Alert, Oriented ...Motor Strength: WNL Labs: CBC, BMP 01/21/19 08:10 01/21/19 08:10 Problem List - Problems (1) Ascites Assessment/Plan: Diuresis w/ IV lasix GI consult Will need diagnostic and therapeutic paracentesis Cont IV antibxs to r/o SBP Code(s): R18.8 - OTHER ASCITES Qualifiers: Ascites type: other type Qualified Code(s): R18.8 - Other ascites (2) Diabetes Assessment/Plan: Cont sliding scale w/ coverage Cont metformin Code(s): E11.9 - TYPE 2 DIABETES MELLITUS WITHOUT COMPLICATIONS Qualifiers: Diabetes mellitus type: type 2 Diabetes mellitus complication status: without complication Qualified Code(s): E11.9 - Type 2 diabetes mellitus without complications (3) HTN (hypertension) Assessment/Plan: Cont norvasc/asa Code(s): I10 - ESSENTIAL (PRIMARY) HYPERTENSION Qualifiers: Hypertension type: essential hypertension Qualified Code(s): I10 - Essential (primary) hypertension (4) Hepatic cirrhosis Assessment/Plan: Cont nadolol Code(s): K74.60 - UNSPECIFIED CIRRHOSIS OF LIVER Qualifiers: Hepatic cirrhosis type: unspecified hepatic cirrhosis Ascites presence: unspecified Qualified Code(s): K74.60 - Unspecified cirrhosis of liver (5) Morbid obesity with BMI of 40.0-44.9, adult Code(s): E66.01 - MORBID (SEVERE) OBESITY DUE TO EXCESS CALORIES; Z68.41 - BODY MASS INDEX (BMI) 40.0-44.9, ADULT
--- NOTE | 2019-01-21 19:51 | CONS ---
GASTROENTEROLOGY CONSULTATION DATE OF CONSULTATION: DATE OF DICTATION: 01/21/2019 Patient is a 53-year-old female with a past medical history of hypertension, diabetes, cirrhosis with portal hypertension, ascites, and varices, also with an abdominal abscess that was drained in 2016, left eye blindness, and she also had a paracentesis in 2017, who presents to the hospital with complaints of progressively distended abdomen which has been worsening over the past couple of weeks, also with bilateral lower extremity swelling. She admits to shortness of breath with ambulation and difficulty lying flat secondary to shortness of breath. She denies any nausea, vomiting, abdominal pain, melena, hematochezia, fevers, or chills prior to coming to the hospital. Her last colonoscopy was done in 2019. It is unclear when she had her last upper endoscopy. She denies any other complaints. PAST MEDICAL AND SURGICAL HISTORY: As listed in the HPI. ALLERGIES: No known drug allergies. SOCIAL HISTORY: Does not smoke, does not drink alcohol. No intravenous drug abuse. HOME MEDICATIONS: Include Norvasc, aspirin, Lasix 40, nadolol 40 mg p.o. daily, metformin 1000 mg p.o. b.i.d. FAMILY HISTORY: No history of GI or gynecological malignancy. REVIEW OF SYSTEMS: As per in the HPI. PHYSICAL EXAMINATION: Vital Signs: Temperature 97, pulse 57, blood pressure 102/48, pulse oximetry 98 % on room air, respiratory rate 12. General: No acute distress. HEENT: Anicteric sclerae. Cardiovascular: S1, S2. Regular rate and rhythm. Lungs: Bilaterally clear to auscultation. Abdomen: With shifting dullness and distended with ascites; nontender. Extremities: Positive for edema. LABORATORY DATA: White blood cell count 3.2, hemoglobin 8.7 and hematocrit 26, MCV 99, platelet count 237. INR 1.28. Sodium 139, potassium 4.1, BUN 17, creatinine 0.6, glucose 93, total bilirubin 0.8, AST 43, ALT 25, alkaline phosphatase 197, lipase 86. Abdomen and pelvis CT scan was performed in the ER and revealed small-to- moderate left and small right pleural effusions with bibasal atelectatic changes, large amount of ascites, small liver with suggestion of cirrhosis. No gross varices were identified. Multiple gallstones without gross wall thickening. Moderate-size umbilical hernia containing fluid and ascites. No evidence of any obstruction and there is a suggestion of anasarca. IMPRESSION: Decompensated cirrhosis with ascites. Fever. RECOMMENDATION: Diagnostic and therapeutic paracentesis, exclude SBP. Panculture. Zosyn will be initiated. ID evaluation Continue nadolol 40 mg p.o. daily; 2-g sodium diet, diabetic. Avoid NSAID. Strict I's and O's. Daily weights. Monitor her volume status and her diuretics should be resumed based on her volume status and findings after paracentesis. If she has not had a recent upper endoscopy, she would benefit from a diagnostic upper endoscopy once the acute process has resolved. This patient will be followed by the GI service. DO ETELVINA SOUZA/[id number] MTDD
[2019-01-21] MEDS ORDERED: INSULIN (NOVOLOG) ASPART 100 UNITS/ML 10ML VIAL ONE (20:59)
[2019-01-22] MEDS: INSULIN SLIDING SCALE (NOVOLOG) 1 VIAL SQ SCH ×4 (06:11→22:23)
[2019-01-22] MEDS ORDERED: PIPERACILLIN/TAZOBACTAM 3.375 GM VIAL IVPB ONE ×2 (10:03→17:07)
[2019-01-22] MEDS ORDERED: DEXTROSE 5%-WATER - 50 ML IVPB ONE ×2 (10:03→17:07)
[2019-01-22] MEDS: metFORMIN HCL 500 MG TABLET (FP) PO SCH ×2 (10:14→17:04)
[2019-01-22] MEDS: amLODIPine BESYLATE 10 MG TABLET (FP) PO SCH (10:15)
[2019-01-22] MEDS: FUROSEMIDE 40 MG/4 ML INJECTABLE VIAL IVPUSH SCH (10:15)
[2019-01-22] MEDS: PIPERACILLIN/TAZOB 3.375 GM 3.375 GM in DEXTROSE 5%-WATER - 50 ML IVPB SCH ×2 (10:15→17:37)
[2019-01-22] MEDS: HEPARIN NA (PORCINE) 5,000 UNITS/ML 1ML VIAL SQ SCH ×2 (10:16→22:28)
[2019-01-22] MEDS: ASPIRIN 81 MG CHEWABLE TABLETS PO SCH (10:16)
[2019-01-22] MEDS ORDERED: PT OWN MED DRAWER 7, Y5N ONE ×2 (10:18→10:21)
--- NOTE | 2019-01-22 10:18 | PN.GI ---
GI Progress Note Subjective: Pt seen/examined at bedside, sitting up, feels well, pts daughter in law also present. Denies abdominal pain. Tolerating diet. Pending paracentesis today. - Objective Vital Signs: Vital Signs Temperature 97.9 F 01/22/19 06:00 Pulse Rate 61 01/22/19 06:00 Respiratory Rate 20 01/22/19 06:00 Blood Pressure 104/69 01/22/19 06:00 O2 Sat by Pulse Oximetry (%) 99 01/21/19 21:00 Constitutional: Well Nourished, No Distress, Calm Cardiovascular: Yes: WNL, Regular Rate and Rhythm Respiratory: Yes: WNL, Regular, CTA Bilaterally ...Palpate: Yes: Other (Abd soft, distended, nontender) Labs: CBC, BMP 01/21/19 08:10 01/21/19 08:10 INR, PTT INR 1.28 (0.83-1.09) H 01/20/19 23:30 Problem List - Problems (1) Hepatic cirrhosis Assessment/Plan: 53yo female h/o HTN, DM, cirrhosis likely secondary to FISHER presenting with increased abdominal girth and LE edema. Pending paracentesis today. Pt does not recall prior EGD. -Therapeutic and diagnostic paracentesis as scheduled today r/o SBP (need to send fluid for cell count, alb, total protein, ldh, glucose) -Follow up cultures -Check hepatitis serologies -Continue nadolol 40mg titrate to HR 55-60 -2g Na diet -Diuretic regimen to be optimized as tolerated and renal function allows post paracentesis -EGD to be scheduled for variceal screening once further optimized, can consider prior to discharge Code(s): K74.60 - UNSPECIFIED CIRRHOSIS OF LIVER Qualifiers: Hepatic cirrhosis type: unspecified hepatic cirrhosis Ascites presence: unspecified Qualified Code(s): K74.60 - Unspecified cirrhosis of liver
[2019-01-22] MEDS: NADOLOL 20 MG TABLET (FP) PO SCH (10:19)
[2019-01-22 18:07] LABS: BF WBC & OTHER NUCLEATED CELLS 135 /mm3
[2019-01-22 18:52] LABS: BODY FLUID MESOTHELIAL 5 %
[2019-01-22 18:53] LABS: BODY FLUID MACROPHAGES 13 %; BODY FLUID MONOCYTE 5 %
--- NOTE | 2019-01-22 22:11 | PN ---
Progress Note, Physician History of Present Illness: No new complaints - Current Medication List Current Medications: Active Medications Amlodipine Besylate (Norvasc -) 10 mg PO DAILY [facility] Last Admin: 01/22/19 10:15 Dose: 10 mg Aspirin (Asa -) 81 mg PO DAILY [facility] Last Admin: 01/22/19 10:16 Dose: Not Given Furosemide (Lasix Injection -) 40 mg IVPUSH DAILY [facility] Last Admin: 01/22/19 10:15 Dose: 40 mg Heparin Sodium (Porcine) (Heparin -) 5,000 unit SQ BID [facility] Last Admin: 01/22/19 10:16 Dose: Not Given Piperacillin Sod/Tazobactam (Sod 3.375 gm/ Dextrose) 50 mls @ 100 mls/hr IVPB Q8H-IV [facility]; Protocol Piperacillin Sod/Tazobactam (Sod 3.375 gm/ Dextrose) 50 mls @ 100 mls/hr IVPB Q8H-IV [facility] Stop: 01/23/19 09:59 Last Admin: 01/22/19 17:37 Dose: 100 mls/hr Insulin Aspart (Novolog Vial Sliding Scale -) 1 vial SQ ACHS [facility]; Protocol Last Admin: 01/22/19 17:15 Dose: 2 units Metformin HCl (Glucophage -) 1,000 mg PO BID@0700,1630 [facility] Last Admin: 01/22/19 17:04 Dose: 1,000 mg Nadolol (Corgard -) 40 mg PO DAILY [facility] Last Admin: 01/22/19 10:19 Dose: 40 mg - Objective Vital Signs: Vital Signs Temperature 98.3 F 01/22/19 18:08 Pulse Rate 60 01/22/19 18:08 Respiratory Rate 20 01/22/19 18:08 Blood Pressure 116/72 01/22/19 18:08 O2 Sat by Pulse Oximetry (%) 99 01/22/19 09:00 Constitutional: Yes: Obese Neck: Yes: WNL, Supple Cardiovascular: Yes: WNL, Regular Rate and Rhythm Respiratory: Yes: WNL, Regular, CTA Bilaterally Gastrointestinal: Yes: WNL, Normal Bowel Sounds, Soft, Abdomen, Obese Edema: LLE: 2+, RLE: 2+ Labs: CBC, BMP 01/21/19 08:10 01/21/19 08:10 INR, PTT INR 1.28 (0.83-1.09) H 01/20/19 23:30 Problem List - Problems (1) Ascites Assessment/Plan: S/P paracentesis Follow cytology/cultures Cont IV zosyn Will get ID consults Cont IV lasix Code(s): R18.8 - OTHER ASCITES Qualifiers: Ascites type: other type Qualified Code(s): R18.8 - Other ascites (2) Hepatic cirrhosis Assessment/Plan: Cont nadolol Code(s): K74.60 - UNSPECIFIED CIRRHOSIS OF LIVER Qualifiers: Hepatic cirrhosis type: unspecified hepatic cirrhosis Ascites presence: unspecified Qualified Code(s): K74.60 - Unspecified cirrhosis of liver (3) Diabetes Assessment/Plan: Cont sliding scale w/ coverage Cont metformin Code(s): E11.9 - TYPE 2 DIABETES MELLITUS WITHOUT COMPLICATIONS Qualifiers: Diabetes mellitus type: type 2 Diabetes mellitus complication status: without complication Qualified Code(s): E11.9 - Type 2 diabetes mellitus without complications (4) HTN (hypertension) Assessment/Plan: Cont norvasc/asa Code(s): I10 - ESSENTIAL (PRIMARY) HYPERTENSION Qualifiers: Hypertension type: essential hypertension Qualified Code(s): I10 - Essential (primary) hypertension (5) Morbid obesity with BMI of 40.0-44.9, adult Code(s): E66.01 - MORBID (SEVERE) OBESITY DUE TO EXCESS CALORIES; Z68.41 - BODY MASS INDEX (BMI) 40.0-44.9, ADULT
[2019-01-23] MEDS ORDERED: PIPERACILLIN/TAZOBACTAM 3.375 GM VIAL IVPB ONE (01:28)
[2019-01-23] MEDS ORDERED: DEXTROSE 5%-WATER - 50 ML IVPB ONE (01:28)
[2019-01-23] MEDS: PIPERACILLIN/TAZOB 3.375 GM 3.375 GM in DEXTROSE 5%-WATER - 50 ML IVPB SCH (01:52)
[2019-01-23] MEDS: INSULIN SLIDING SCALE (NOVOLOG) 1 VIAL SQ SCH ×4 (06:54→22:25)
[2019-01-23] MEDS: metFORMIN HCL 500 MG TABLET (FP) PO SCH ×3 (06:55→17:21)
[2019-01-23 08:16] LABS: BASO % 0.8 % (0-2.0); EOS % 4.5 % (0-4.5); HEMOGLOBIN 8.5 GM/dL (10.7-15.3); LYMPH % 37.8 % (8-40); MCH 33.7 pg (25.7-33.7); MCHC 34.2 g/dl (32.0-36.0); MEAN CELL VOLUME 98.5 fl (80-96); MEAN PLT VOLUME 7.7 fl (7.5-11.1); NEUT % 45.9 % (42.8-82.8); PLATELET COUNT 232 K/MM3 (134-434); RBC 2.53 M/mm3 (3.60-5.2); RDW 14.2 % (11.6-15.6)
[2019-01-23 08:17] LABS: ALBUMIN 1.7 g/dl (3.4-5.0); BILIRUBIN,TOTAL 0.6 mg/dL (0.2-1); BLOOD UREA NITROGEN 19.9 mg/dL (7-18); CALCIUM 7.9 mg/dL (8.5-10.1); CREATININE 0.6 mg/dL (0.55-1.3); POTASSIUM 3.9 mmol/L (3.5-5.1); TOT PROT 5.6 g/dl (6.4-8.2)
[2019-01-23] MEDS ORDERED: fentaNYL CITRATE 250 MCG/5 ML VIAL ONE (08:21)
[2019-01-23] MEDS ORDERED: ROCURONIUM BROMIDE 50 MG/5 ML SYRINGE ONE (08:21)
[2019-01-23] MEDS ORDERED: EPHEDRINE SULFATE/0.9% NACL/PF 50 MG/10 ML SYRINGE NR ONE (08:21)
[2019-01-23] MEDS ORDERED: PHENYLEPHRINE HCL 10 MG/1 ML SINGLE DOSE VIAL ONE (08:21)
[2019-01-23] MEDS ORDERED: PROPOFOL 20 ML ONE ×2 (08:21)
[2019-01-23] MEDS ORDERED: MIDAZOLAM HCL 2 MG/2 ML SINGLE DOSE VIAL ONE ×2 (08:21→08:57)
[2019-01-23] MEDS ORDERED: ROPIVACAINE HCL 0.5% 30ML VIAL ONE (08:56)
[2019-01-23] MEDS ORDERED: PT OWN MED DRAWER 7, Y5N ONE (10:22)
[2019-01-23] MEDS: HEPARIN NA (PORCINE) 5,000 UNITS/ML 1ML VIAL SQ SCH ×2 (10:28→22:26)
[2019-01-23] MEDS: NADOLOL 20 MG TABLET (FP) PO SCH (10:28)
[2019-01-23] MEDS: amLODIPine BESYLATE 10 MG TABLET (FP) PO SCH (10:28)
[2019-01-23] MEDS: FUROSEMIDE 40 MG/4 ML INJECTABLE VIAL IVPUSH SCH (10:28)
[2019-01-23] MEDS: ASPIRIN 81 MG CHEWABLE TABLETS PO SCH (10:28)
--- NOTE | 2019-01-23 16:38 | PN.GI ---
GI Progress Note Subjective: No acute events No abdominal pain Had paracentesis - Objective Vital Signs: Vital Signs Temperature 98.3 F 01/23/19 14:00 Pulse Rate 58 L 01/23/19 14:00 Respiratory Rate 20 01/23/19 14:00 Blood Pressure 106/55 L 01/23/19 14:00 O2 Sat by Pulse Oximetry (%) 99 01/23/19 08:18 Constitutional: Calm Eyes: No: Sclera Icterus Cardiovascular: Yes: Regular Rate and Rhythm Respiratory: Yes: Diminished (at bases bilaterally) Gastrointestinal Inspection: Yes: Ascites ...Auscultate: Yes: Normoactive Bowel Sounds ...Palpate: Yes: Soft ...Percussion: No: Tympanitic Edema: Yes Neurological: Yes: Alert Labs: CBC, BMP 01/23/19 07:05 01/23/19 07:05 INR, PTT INR 1.28 (0.83-1.09) H 01/20/19 23:30 Laboratory Tests 01/22/19 01/22/19 11:30 11:30 Fluid Source Peritoneal Fluid WBC 135 Fluid RBC 927 Fluid Neutrophils 1 Fluid Lymphocytes 76 Fluid Glucose Pending Fluid Total Protein Pending Fluid Albumin Pending Body Fluid LDH Source Pending Fluid Amylase Pending Fluid Cholesterol Pending Fluid Triglycerides Pending Pleural Monocytes 5 Pleural Macrophages 13 Pleural Mesothelial 5 Problem List - Problems (1) Ascites Assessment/Plan: No SBP on paracentesis Spoke with patient. Vaguely describes that she is being referred up to [facility] for further testing of her liver. I spoke to her son via telephone. he was uncertain regarding this plan as well She should be connected to a liver transplant facility Optimization of diuretic therapy Needs Q 6 month hepatic US to assess for HCC 2g low Na diet Code(s): R18.8 - OTHER ASCITES Qualifiers: Ascites type: other type Qualified Code(s): R18.8 - Other ascites
--- NOTE | 2019-01-23 22:10 | PN ---
Progress Note, Physician History of Present Illness: No new complaints - Current Medication List Current Medications: Active Medications Amlodipine Besylate (Norvasc -) 10 mg PO DAILY [facility] Last Admin: 01/23/19 10:28 Dose: 10 mg Aspirin (Asa -) 81 mg PO DAILY [facility] Last Admin: 01/23/19 10:28 Dose: 81 mg Furosemide (Lasix Injection -) 40 mg IVPUSH DAILY [facility] Stop: 01/24/19 06:00 Last Admin: 01/23/19 10:28 Dose: 40 mg Furosemide (Lasix -) 40 mg PO DAILY [facility] Heparin Sodium (Porcine) (Heparin -) 5,000 unit SQ BID [facility] Last Admin: 01/23/19 10:28 Dose: 5,000 unit Piperacillin Sod/Tazobactam (Sod 3.375 gm/ Dextrose) 50 mls @ 100 mls/hr IVPB Q8H-IV [facility]; Protocol Insulin Aspart (Novolog Vial Sliding Scale -) 1 vial SQ ACHS [facility]; Protocol Last Admin: 01/23/19 17:22 Dose: Not Given Metformin HCl (Glucophage -) 1,000 mg PO BID@0700,1630 [facility] Last Admin: 01/23/19 17:21 Dose: 1,000 mg Nadolol (Corgard -) 40 mg PO DAILY [facility] Last Admin: 01/23/19 10:28 Dose: 40 mg Spironolactone (Aldactone -) 100 mg PO DAILY [facility] - Objective Vital Signs: Vital Signs Temperature 98.8 F 01/23/19 18:52 Pulse Rate 56 L 01/23/19 18:52 Respiratory Rate 20 01/23/19 18:52 Blood Pressure 98/54 L 01/23/19 18:52 O2 Sat by Pulse Oximetry (%) 99 01/23/19 08:18 Neck: Yes: WNL, Supple Cardiovascular: Yes: WNL, Regular Rate and Rhythm Respiratory: Yes: WNL, Regular, CTA Bilaterally Gastrointestinal: Yes: Normal Bowel Sounds, Ascites Edema: LLE: 2+, RLE: 2+ Labs: CBC, BMP 01/23/19 07:05 01/23/19 07:05 INR, PTT INR 1.28 (0.83-1.09) H 01/20/19 23:30 Problem List - Problems (1) Ascites Assessment/Plan: S/P paracentesis No SBE Will dc zosyn GI consult note Cont IV lasix Will add spirinolactone Code(s): R18.8 - OTHER ASCITES Qualifiers: Ascites type: other type Qualified Code(s): R18.8 - Other ascites (2) Hepatic cirrhosis Assessment/Plan: Cont nadolol Code(s): K74.60 - UNSPECIFIED CIRRHOSIS OF LIVER Qualifiers: Hepatic cirrhosis type: unspecified hepatic cirrhosis Ascites presence: unspecified Qualified Code(s): K74.60 - Unspecified cirrhosis of liver (3) Diabetes Assessment/Plan: Cont sliding scale w/ coverage Cont metformin Code(s): E11.9 - TYPE 2 DIABETES MELLITUS WITHOUT COMPLICATIONS Qualifiers: Diabetes mellitus type: type 2 Diabetes mellitus complication status: without complication Qualified Code(s): E11.9 - Type 2 diabetes mellitus without complications (4) HTN (hypertension) Assessment/Plan: Cont norvasc/asa Code(s): I10 - ESSENTIAL (PRIMARY) HYPERTENSION Qualifiers: Hypertension type: essential hypertension Qualified Code(s): I10 - Essential (primary) hypertension (5) Morbid obesity with BMI of 40.0-44.9, adult Code(s): E66.01 - MORBID (SEVERE) OBESITY DUE TO EXCESS CALORIES; Z68.41 - BODY MASS INDEX (BMI) 40.0-44.9, ADULT
[2019-01-24] MEDS: metFORMIN HCL 500 MG TABLET (FP) PO SCH ×2 (06:16→16:46)
[2019-01-24] MEDS: INSULIN SLIDING SCALE (NOVOLOG) 1 VIAL SQ SCH ×4 (06:20→22:37)
[2019-01-24 08:12] LABS: BASO % 0.6 % (0-2.0); EOS % 4.7 % (0-4.5); HEMATOCRIT 26.9 % (32.4-45.2); LYMPH % 38.2 % (8-40); MCH 33.2 pg (25.7-33.7); MCHC 33.6 g/dl (32.0-36.0); MEAN CELL VOLUME 98.9 fl (80-96); MEAN PLT VOLUME 7.8 fl (7.5-11.1); MONO % 9.5 % (3.8-10.2); PLATELET COUNT 241 K/MM3 (134-434); RBC 2.72 M/mm3 (3.60-5.2); RDW 14.7 % (11.6-15.6); WHITE BLOOD COUNT 2.9 K/mm3 (4.0-10.0)
[2019-01-24 08:40] LABS: ALBUMIN 1.7 g/dl (3.4-5.0); BILIRUBIN,TOTAL 0.9 mg/dL (0.2-1); BLOOD UREA NITROGEN 18.5 mg/dL (7-18); CALCIUM 7.8 mg/dL (8.5-10.1); CREATININE 0.6 mg/dL (0.55-1.3); POTASSIUM 4.2 mmol/L (3.5-5.1); TOT PROT 5.6 g/dl (6.4-8.2)
[2019-01-24] MEDS: PIPERACILLIN/TAZOB 3.375 GM 3.375 GM in DEXTROSE 5%-WATER - 50 ML IVPB SCH ×2 (10:45→10:46)
[2019-01-24] MEDS: FUROSEMIDE 40 MG TABLET (FP) PO SCH (11:04)
[2019-01-24] MEDS: ASPIRIN 81 MG CHEWABLE TABLETS PO SCH (11:04)
[2019-01-24] MEDS: SPIRONOLACTONE 25 MG TABLET (FP) PO SCH (11:04)
[2019-01-24] MEDS: amLODIPine BESYLATE 10 MG TABLET (FP) PO SCH (11:04)
[2019-01-24] MEDS: HEPARIN NA (PORCINE) 5,000 UNITS/ML 1ML VIAL SQ SCH ×2 (11:04→23:04)
[2019-01-24] MEDS ORDERED: NADOLOL 40 MG TABLET (FP) PO SCH (11:38)
[2019-01-24] MEDS: NADOLOL 20 MG TABLET (FP) PO SCH (11:45)
--- NOTE | 2019-01-24 12:39 | PN.GI ---
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 This led to her undergoing abdominal paracentesis. She states thst the fluid did not recur until recently, along with LE swelling as well. - Objective Vital Signs: Vital Signs Temperature 98.5 F 01/24/19 09:29 Pulse Rate 58 L 01/24/19 09:29 Respiratory Rate 19 01/24/19 09:29 Blood Pressure 100/50 L 01/24/19 10:59 O2 Sat by Pulse Oximetry (%) 99 01/23/19 21:00 Constitutional: Calm Eyes: No: Sclera Icterus Cardiovascular: Yes: Regular Rate and Rhythm Respiratory: Yes: Diminished (at bases bilaterally) Gastrointestinal Inspection: Yes: Distention ...Auscultate: Yes: Normoactive Bowel Sounds ...Palpate: Yes: Soft. No: Tenderness ...Percussion: No: Tympanitic Edema: Yes Edema: LLE: 1+, RLE: 1+ Neurological: Yes: Alert. No: [employer] Labs: CBC, BMP 01/24/19 06:51 01/24/19 06:51 INR, PTT INR 1.28 (0.83-1.09) H 01/20/19 23:30 Hepatic Panel Total Bilirubin 0.9 mg/dL (0.2-1) 01/24/19 06:51 AST 38 U/L (15-37) H 01/24/19 06:51 ALT 22 U/L (13-61) 01/24/19 06:51 Alkaline Phosphatase 176 U/L (45-117) H 01/24/19 06:51 Albumin 1.7 g/dl (3.4-5.0) L 01/24/19 06:51 Problem List - Problems (1) Ascites Assessment/Plan: Non contrast imaging suggestive of cirrhotic changes No SBP on peritoneal fluid cell count and awaiting further studies Follow-up cytology CT scan performed without contrast. Ordered abdominal US to assess for hepatoma and portal vein thrombosis Started on Aldactone and Lasix. Monitor daily weights. Monitor renal function given that diuretic regimen just started. 2g low Na diet. Ordered screening hepatitis A/B/C serologies for AM Discussed upper endoscopy with possible banding with Ms. Gimenez via [employer] supervisor powdered metal [id number] to screen for varices. We discussed potential risks of the procedure like but not limited to bleeding, perforatio n requiring surgery to repair, infection, sedation medication effects all of which could be potentially life threatening. She has agreed to the procedure. Plan for 01/[address] Chrissy Calhoun, transplant life sciences manager at [facility]. She took Ms. Gimenez's contact number [phone] as well as her Son Kal's number: [phone]. She will help arrange outpatient evaluation at [facility]. This was discussed with Ms. Gimenez and she was in agreement with the plan. Code(s): R18.8 - OTHER ASCITES Qualifiers: Ascites type: other type Qualified Code(s): R18.8 - Other ascites
[2019-01-24 16:07] LABS: BODY FLUID ALBUMIN 0.7 g/dL (.)
--- NOTE | 2019-01-24 21:59 | PN ---
Progress Note (short form) - Note Progress Note: Error made in orders, reinstate previous diet order as per GI; diabetic Na diet 2g Na limitation, NPO at midnight for EGD Sunday.
--- NOTE | 2019-01-24 22:47 | PN ---
Progress Note, Physician History of Present Illness: No new complaints - Current Medication List Current Medications: Active Medications Amlodipine Besylate (Norvasc -) 10 mg PO DAILY [facility] Last Admin: 01/24/19 11:04 Dose: 10 mg Aspirin (Asa -) 81 mg PO DAILY [facility] Last Admin: 01/24/19 11:04 Dose: 81 mg Furosemide (Lasix -) 40 mg PO DAILY [facility] Last Admin: 01/24/19 11:04 Dose: 40 mg Heparin Sodium (Porcine) (Heparin -) 5,000 unit SQ BID [facility] Last Admin: 01/24/19 11:04 Dose: 5,000 unit Insulin Aspart (Novolog Vial Sliding Scale -) 1 vial SQ ACHS [facility]; Protocol Last Admin: 01/24/19 22:37 Dose: Not Given Metformin HCl (Glucophage -) 1,000 mg PO BID@0700,1630 [facility] Last Admin: 01/24/19 16:46 Dose: 1,000 mg Nadolol (Corgard -) 40 mg PO DAILY [facility] Spironolactone (Aldactone -) 100 mg PO DAILY [facility] Last Admin: 01/24/19 11:04 Dose: 100 mg - Objective Vital Signs: Vital Signs Temperature 98.6 F 01/24/19 18:00 Pulse Rate 73 01/24/19 18:00 Respiratory Rate 20 01/24/19 18:00 Blood Pressure 131/71 01/24/19 18:00 O2 Sat by Pulse Oximetry (%) 99 01/23/19 21:00 Constitutional: Yes: Well Nourished Neck: Yes: WNL, Supple Cardiovascular: Yes: WNL, Regular Rate and Rhythm Respiratory: Yes: WNL, Regular, CTA Bilaterally Gastrointestinal: Yes: Normal Bowel Sounds, Soft, Abdomen, Obese, Ascites Labs: CBC, BMP 01/24/19 06:51 01/24/19 06:51 INR, PTT INR 1.28 (0.83-1.09) H 01/20/19 23:30 Problem List - Problems (1) Ascites Assessment/Plan: S/P paracentesis No SBP Cont IV lasix Cont spirinolactone Code(s): R18.8 - OTHER ASCITES Qualifiers: Ascites type: other type Qualified Code(s): R18.8 - Other ascites (2) Hepatic cirrhosis Assessment/Plan: Cont nadolol Pt scheduled for EGD in am DC planning after EGD Code(s): K74.60 - UNSPECIFIED CIRRHOSIS OF LIVER Qualifiers: Hepatic cirrhosis type: unspecified hepatic cirrhosis Ascites presence: unspecified Qualified Code(s): K74.60 - Unspecified cirrhosis of liver (3) Diabetes Assessment/Plan: Cont sliding scale w/ coverage Cont metformin Code(s): E11.9 - TYPE 2 DIABETES MELLITUS WITHOUT COMPLICATIONS Qualifiers: Diabetes mellitus type: type 2 Diabetes mellitus complication status: without complication Qualified Code(s): E11.9 - Type 2 diabetes mellitus without complications (4) HTN (hypertension) Assessment/Plan: Cont norvasc/asa Code(s): I10 - ESSENTIAL (PRIMARY) HYPERTENSION Qualifiers: Hypertension type: essential hypertension Qualified Code(s): I10 - Essential (primary) hypertension (5) Morbid obesity with BMI of 40.0-44.9, adult Code(s): E66.01 - MORBID (SEVERE) OBESITY DUE TO EXCESS CALORIES; Z68.41 - BODY MASS INDEX (BMI) 40.0-44.9, ADULT
[2019-01-25] MEDS: INSULIN SLIDING SCALE (NOVOLOG) 1 VIAL SQ SCH ×4 (06:55→22:35)
--- NOTE | 2019-01-25 08:02 | PN.GI ---
GI Progress Note Subjective: no new complaints - feeling better today - Objective Vital Signs: Vital Signs Temperature 98.6 F 01/25/19 06:00 Pulse Rate 64 01/25/19 06:00 Respiratory Rate 20 01/25/19 06:00 Blood Pressure 100/68 01/25/19 06:00 O2 Sat by Pulse Oximetry (%) 97 01/24/19 21:00 Constitutional: Well Nourished, No Distress, Calm Eyes: Yes: WNL HENT: Yes: WNL Neck: Yes: WNL Cardiovascular: Yes: WNL, Regular Rate and Rhythm Respiratory: Yes: WNL, Regular, CTA Bilaterally Gastrointestinal Inspection: Yes: Ascites ...Auscultate: Yes: Normoactive Bowel Sounds Edema: Yes Labs: CBC, BMP 01/24/19 06:51 01/24/19 06:51 INR, PTT INR 1.28 (0.83-1.09) H 01/20/19 23:30 Problem List - Problems (1) Ascites Assessment/Plan: abdominal ultrasound without evidence of thrombosis c/w lasix and aldactone monitor I' O's daily weights no sign of sbp two gm sodium diet / dm plan for diagnostic egd on Sunday serologies for chronic disease are pending Code(s): R18.8 - OTHER ASCITES Qualifiers: Ascites type: other type Qualified Code(s): R18.8 - Other ascites (2) Hepatic cirrhosis Code(s): K74.60 - UNSPECIFIED CIRRHOSIS OF LIVER Qualifiers: Hepatic cirrhosis type: unspecified hepatic cirrhosis Ascites presence: unspecified Qualified Code(s): K74.60 - Unspecified cirrhosis of liver
[2019-01-25 09:04] LABS: ALBUMIN 1.8 g/dl (3.4-5.0); BILIRUBIN,TOTAL 0.5 mg/dL (0.2-1); BLOOD UREA NITROGEN 18.9 mg/dL (7-18); CALCIUM 7.7 mg/dL (8.5-10.1); CREATININE 0.6 mg/dL (0.55-1.3); POTASSIUM 4.1 mmol/L (3.5-5.1); TOT PROT 5.9 g/dl (6.4-8.2)
[2019-01-25] MEDS: SPIRONOLACTONE 25 MG TABLET (FP) PO SCH (09:10)
[2019-01-25] MEDS: ASPIRIN 81 MG CHEWABLE TABLETS PO SCH (09:10)
[2019-01-25] MEDS: metFORMIN HCL 500 MG TABLET (FP) PO SCH ×2 (09:10→16:41)
[2019-01-25] MEDS: HEPARIN NA (PORCINE) 5,000 UNITS/ML 1ML VIAL SQ SCH ×2 (09:11→22:36)
[2019-01-25] MEDS: FUROSEMIDE 40 MG TABLET (FP) PO SCH (12:10)
[2019-01-25] MEDS: amLODIPine BESYLATE 10 MG TABLET (FP) PO SCH (12:11)
--- NOTE | 2019-01-25 17:45 | PN ---
Progress Note, Physician - Current Medication List Current Medications: Active Medications Amlodipine Besylate (Norvasc -) 10 mg PO DAILY [facility] Aspirin (Asa -) 81 mg PO DAILY [facility] Last Admin: 01/25/19 09:10 Dose: 81 mg Furosemide (Lasix -) 40 mg PO DAILY [facility] Heparin Sodium (Porcine) (Heparin -) 5,000 unit SQ BID [facility] Last Admin: 01/25/19 09:11 Dose: 5,000 unit Insulin Aspart (Novolog Vial Sliding Scale -) 1 vial SQ ACHS [facility]; Protocol Last Admin: 01/25/19 16:30 Dose: Not Given Metformin HCl (Glucophage -) 1,000 mg PO BID@0700,1630 [facility] Last Admin: 01/25/19 16:41 Dose: Not Given Nadolol (Corgard -) 40 mg PO DAILY [facility] Spironolactone (Aldactone -) 100 mg PO DAILY [facility] Last Admin: 01/25/19 09:10 Dose: 100 mg - Objective Vital Signs: Vital Signs Temperature 98.1 F 01/25/19 15:00 Pulse Rate 63 01/25/19 15:00 Respiratory Rate 20 01/25/19 15:00 Blood Pressure 106/64 01/25/19 15:00 O2 Sat by Pulse Oximetry (%) 98 01/25/19 09:00 Constitutional: Yes: Well Nourished, Obese Neck: Yes: WNL, Supple Cardiovascular: Yes: WNL, Regular Rate and Rhythm Respiratory: Yes: WNL, Regular, CTA Bilaterally Gastrointestinal: Yes: Normal Bowel Sounds, Soft, Abdomen, Obese, Ascites Edema: LLE: 1+, RLE: 1+ Labs: CBC, BMP 01/24/19 06:51 01/25/19 07:57 INR, PTT INR 1.28 (0.83-1.09) H 01/20/19 23:30 Problem List - Problems (1) Ascites Assessment/Plan: S/P paracentesis No SBP Cont IV lasix Cont spirinolactone Code(s): R18.8 - OTHER ASCITES Qualifiers: Ascites type: other type Qualified Code(s): R18.8 - Other ascites (2) Hepatic cirrhosis Assessment/Plan: Cont nadolol Pt scheduled for EGD in am DC planning after EGD Code(s): K74.60 - UNSPECIFIED CIRRHOSIS OF LIVER Qualifiers: Hepatic cirrhosis type: unspecified hepatic cirrhosis Ascites presence: unspecified Qualified Code(s): K74.60 - Unspecified cirrhosis of liver (3) Diabetes Assessment/Plan: Cont sliding scale w/ coverage Cont metformin Code(s): E11.9 - TYPE 2 DIABETES MELLITUS WITHOUT COMPLICATIONS Qualifiers: Diabetes mellitus type: type 2 Diabetes mellitus complication status: without complication Qualified Code(s): E11.9 - Type 2 diabetes mellitus without complications (4) HTN (hypertension) Assessment/Plan: Cont norvasc/asa Code(s): I10 - ESSENTIAL (PRIMARY) HYPERTENSION Qualifiers: Hypertension type: essential hypertension Qualified Code(s): I10 - Essential (primary) hypertension (5) Morbid obesity with BMI of 40.0-44.9, adult Code(s): E66.01 - MORBID (SEVERE) OBESITY DUE TO EXCESS CALORIES; Z68.41 - BODY MASS INDEX (BMI) 40.0-44.9, ADULT
[2019-01-26] MEDS: INSULIN SLIDING SCALE (NOVOLOG) 1 VIAL SQ SCH ×4 (06:45→23:45)
[2019-01-26] MEDS: metFORMIN HCL 500 MG TABLET (FP) PO SCH ×2 (06:46→17:36)
--- NOTE | 2019-01-26 07:52 | PN.GI ---
GI Progress Note Subjective: no complaints - feeling well today - Objective Vital Signs: Vital Signs Temperature 98.5 F 01/26/19 07:20 Pulse Rate 57 L 01/26/19 07:20 Respiratory Rate 20 01/26/19 07:20 Blood Pressure 100/58 L 01/26/19 07:20 O2 Sat by Pulse Oximetry (%) 98 01/25/19 21:00 Constitutional: Well Nourished, No Distress, Calm Eyes: Yes: WNL HENT: Yes: WNL Neck: Yes: WNL, Supple Cardiovascular: Yes: WNL, Regular Rate and Rhythm Respiratory: Yes: WNL, Regular, CTA Bilaterally Gastrointestinal Inspection: Yes: Ascites ...Auscultate: Yes: Normoactive Bowel Sounds Edema: Yes Labs: CBC, BMP 01/24/19 06:51 01/25/19 07:57 INR, PTT INR 1.28 (0.83-1.09) H 01/20/19 23:30 Problem List - Problems (1) Ascites Assessment/Plan: abdominal ultrasound without evidence of thrombosis c/w lasix and aldactone monitor I' O's daily weights no sign of sbp two gm sodium diet / dm - npo midnight for diagnostic egd SUNDAY serologies for chronic disease are pending results Code(s): R18.8 - OTHER ASCITES Qualifiers: Ascites type: other type Qualified Code(s): R18.8 - Other ascites (2) Hepatic cirrhosis Code(s): K74.60 - UNSPECIFIED CIRRHOSIS OF LIVER Qualifiers: Hepatic cirrhosis type: unspecified hepatic cirrhosis Ascites presence: unspecified Qualified Code(s): K74.60 - Unspecified cirrhosis of liver
[2019-01-26] MEDS ORDERED: PT OWN MED DRAWER 7, Y5N ONE (09:49)
[2019-01-26] MEDS: SPIRONOLACTONE 25 MG TABLET (FP) PO SCH (09:52)
[2019-01-26] MEDS: HEPARIN NA (PORCINE) 5,000 UNITS/ML 1ML VIAL SQ SCH ×2 (09:52→23:10)
[2019-01-26] MEDS: NADOLOL 40 MG TABLET (FP) PO SCH (09:52)
[2019-01-26] MEDS: amLODIPine BESYLATE 10 MG TABLET (FP) PO SCH (09:53)
[2019-01-26] MEDS: ASPIRIN 81 MG CHEWABLE TABLETS PO SCH (09:53)
[2019-01-26] MEDS: FUROSEMIDE 40 MG TABLET (FP) PO SCH (09:53)
--- NOTE | 2019-01-26 20:56 | PN ---
Progress Note, Physician History of Present Illness: No new complaints - Current Medication List Current Medications: Active Medications Amlodipine Besylate (Norvasc -) 10 mg PO DAILY [facility] Last Admin: 01/26/19 09:53 Dose: 10 mg Aspirin (Asa -) 81 mg PO DAILY [facility] Last Admin: 01/26/19 09:53 Dose: 81 mg Furosemide (Lasix -) 40 mg PO DAILY [facility] Last Admin: 01/26/19 09:53 Dose: 40 mg Heparin Sodium (Porcine) (Heparin -) 5,000 unit SQ BID [facility] Last Admin: 01/26/19 09:52 Dose: 5,000 unit Insulin Aspart (Novolog Vial Sliding Scale -) 1 vial SQ ACHS [facility]; Protocol Last Admin: 01/26/19 16:30 Dose: Not Given Metformin HCl (Glucophage -) 1,000 mg PO BID@0700,1630 [facility] Last Admin: 01/26/19 17:36 Dose: 1,000 mg Nadolol (Corgard -) 40 mg PO DAILY [facility] Last Admin: 01/26/19 09:52 Dose: 40 mg Spironolactone (Aldactone -) 100 mg PO DAILY [facility] Last Admin: 01/26/19 09:52 Dose: 100 mg - Objective Vital Signs: Vital Signs Temperature 98.7 F 01/26/19 18:33 Pulse Rate 58 L 01/26/19 18:33 Respiratory Rate 20 01/26/19 18:33 Blood Pressure 96/55 L 01/26/19 18:33 O2 Sat by Pulse Oximetry (%) 98 01/26/19 09:00 Neck: Yes: WNL, Supple Cardiovascular: Yes: WNL, Regular Rate and Rhythm Respiratory: Yes: WNL, Regular, CTA Bilaterally Gastrointestinal: Yes: WNL, Normal Bowel Sounds, Soft, Abdomen, Obese, Ascites Edema: LLE: Trace, RLE: Trace Labs: CBC, BMP 01/24/19 06:51 01/25/19 07:57 INR, PTT INR 1.28 (0.83-1.09) H 01/20/19 23:30 Problem List - Problems (1) Hepatic cirrhosis Assessment/Plan: Cont nadolol Pt scheduled for EGD in am DC planning after EGD Code(s): K74.60 - UNSPECIFIED CIRRHOSIS OF LIVER Qualifiers: Hepatic cirrhosis type: unspecified hepatic cirrhosis Ascites presence: unspecified Qualified Code(s): K74.60 - Unspecified cirrhosis of liver (2) Ascites Assessment/Plan: S/P paracentesis No SBE Cont IV lasix Cont spirinolactone Code(s): R18.8 - OTHER ASCITES Qualifiers: Ascites type: other type Qualified Code(s): R18.8 - Other ascites (3) Diabetes Assessment/Plan: Cont sliding scale w/ coverage Cont metformin Qualifiers: Diabetes mellitus type: type 2 Diabetes mellitus complication status: without complication Qualified Code(s): E11.9 - Type 2 diabetes mellitus without complications (4) HTN (hypertension) Assessment/Plan: Cont norvasc/asa Code(s): I10 - ESSENTIAL (PRIMARY) HYPERTENSION Qualifiers: Hypertension type: essential hypertension Qualified Code(s): I10 - Essential (primary) hypertension (5) Morbid obesity with BMI of 40.0-44.9, adult Code(s): E66.01 - MORBID (SEVERE) OBESITY DUE TO EXCESS CALORIES; Z68.41 - BODY MASS INDEX (BMI) 40.0-44.9, ADULT
[2019-01-27] MEDS: metFORMIN HCL 500 MG TABLET (FP) PO SCH (06:59)
[2019-01-27] MEDS: INSULIN SLIDING SCALE (NOVOLOG) 1 VIAL SQ SCH ×2 (07:00→11:18)
[2019-01-27 07:46] LABS: BASO % 0.8 % (0-2.0); EOS % 5.4 % (0-4.5); HEMATOCRIT 26.2 % (32.4-45.2); HEMOGLOBIN 8.8 GM/dL (10.7-15.3); LYMPH % 41.8 % (8-40); MCH 33.2 pg (25.7-33.7); MCHC 33.7 g/dl (32.0-36.0); MEAN CELL VOLUME 98.7 fl (80-96); MONO % 11.7 % (3.8-10.2); NEUT % 40.3 % (42.8-82.8); PLATELET COUNT 232 K/MM3 (134-434); RBC 2.66 M/mm3 (3.60-5.2); RDW 14.5 % (11.6-15.6); WHITE BLOOD COUNT 2.4 K/mm3 (4.0-10.0)
[2019-01-27 08:12] LABS: INR 1.18 (0.83-1.09); PROTHROMBIN TIME (PATIENT) 13.9 SEC (9.7-13.0)
[2019-01-27 08:21] LABS: ALBUMIN 1.7 g/dl (3.4-5.0); BILIRUBIN,TOTAL 0.5 mg/dL (0.2-1); BLOOD UREA NITROGEN 16.6 mg/dL (7-18); CALCIUM 7.9 mg/dL (8.5-10.1); CREATININE 0.6 mg/dL (0.55-1.3); POTASSIUM 4.4 mmol/L (3.5-5.1); TOT PROT 5.8 g/dl (6.4-8.2)
[2019-01-27] MEDS: SPIRONOLACTONE 25 MG TABLET (FP) PO SCH (09:15)
[2019-01-27] MEDS: amLODIPine BESYLATE 10 MG TABLET (FP) PO SCH (09:15)
[2019-01-27] MEDS: FUROSEMIDE 40 MG TABLET (FP) PO SCH (09:15)
[2019-01-27] MEDS ORDERED: PT OWN MED DRAWER 7, Y5N ONE (09:17)
[2019-01-27] MEDS: NADOLOL 40 MG TABLET (FP) PO SCH (09:18)
[2019-01-27 10:41] VITALS: BP 110/71; PULSE 58; TEMP 98.7
[2019-01-27 12:03] VITALS: BMI 35.9
--- NOTE | 2019-01-27 15:20 | PN ---
Progress Note (short form) - Note Progress Note: Patient came down for EGD Abdomen is still markedly distended US 01/25 with significant ascites still Anesthesia has reservations regarding sedation - high risk for aspiration given this degree of ascites, and I would agree Would perform paracentesis and remove as much fluid as possible - once as close to euvolemic as possible, would then plan for EGD Discussed with patient and she agrees with plan
[2019-01-27] MEDS: ASPIRIN 81 MG CHEWABLE TABLETS PO SCH (16:28)
--- NOTE | 2019-01-27 17:04 | PATH ---
Cytology Non-Gynecological Report Patient Name: BENOIT KEENE Med. Rec. #: [id number] /Age/Gender: 1965 (Age: 53) / F Account: [id number] Location: [address] [place] [address]/[facility] Taken: 01/22/2019 Received: 01/22/2019 Reported: 01/27/2019 Physicians: Sherri Amaya M.D. Specimen(s) Received ABDOMINAL FLUID Clinical History Ascites Final Diagnosis ABDOMINAL FLUID, PARACENTESIS: SATISFACTORY FOR EVALUATION. NO MALIGNANT CELLS IDENTIFIED. NUMEROUS MACROPHAGES, MESOTHELIAL CELLS, AND LYMPHOCYTES PRESENT. Comment: Suggest clinical and radiologic correlation. Electronically Signed Vivi Jensen M.D. Gross Description Approximately 50 cc of yellow fluid received fixed in 50% alcohol. One cytofunnel prepared and Pap stained. One cellblock prepared.
[2019-01-27 22:11] LABS: HEP B CORE AB, TOT Negative (Negative)
--- NOTE | 2019-02-02 23:08 | DS ---
Physical Examination Vital Signs: Vital Signs Temperature 98.7 F 01/27/19 10:00 Pulse Rate 58 L 01/27/19 10:00 Respiratory Rate 20 01/27/19 10:00 Blood Pressure 110/71 01/27/19 10:00 O2 Sat by Pulse Oximetry (%) 97 01/26/19 21:00 Neck: Yes: WNL, Supple Cardiovascular: Yes: WNL, Regular Rate and Rhythm Respiratory: Yes: WNL, Regular, CTA Bilaterally Gastrointestinal: Yes: Normal Bowel Sounds, Soft, Abdomen, Obese, Ascites Edema: LLE: 1+, RLE: 1+ Labs: CBC, BMP 01/27/19 06:48 01/27/19 06:48 Discharge Summary Problems reviewed: Yes Reason For Visit: ACITES, HEPATIC CIRRHOSIS Ascites Cirrhosis HTN Diabetes Morbid obesity Procedures: Principal: Diagnostic and therapeutic paracentesis Hospital Course: Pt is a 53 y/o female w/ h/o cirrhosis who presented to the hospital bc of worsening ascites. Pt underwent diagnostic and therapeutic paracentesis. There were no malignant cells and no evidence of SBP. Pt was followed by GI and pt has appointment to follow up w/ liver specialist at [facility]. Condition: Good - Instructions Diet, Activity, Other Instructions: 2 gram sodium and 200 calorie diabetic diet Patient advised that she needs to follow up with liver specialist at [facility]. Patient needs follow up endoscopy See your primary care doctor Dr Jason Ortega in 1 week Referrals: Janel Umaña MD [Staff Physician] - Disposition: HOME - Home Medications Comprehensive Discharge Medication List: Ambulatory Orders Amlodipine Besylate [Norvasc -] 10 mg PO DAILY #0 tablet 02/19/17 Aspirin [ASA -] 81 mg PO DAILY #0 tab.chew 02/19/17 Furosemide [Lasix -] 40 mg PO DAILY #0 tablet 02/19/17 Linagliptin/Metformin HCl [Jentadueto Xr 2.5 mg-1,000 mg] 1 each PO BID Nadolol 40 mg PO DAILY 01/21/19 Furosemide [Lasix -] 40 mg PO DAILY #30 tablet 01/27/19 Spironolactone 50 mg PO DAILY #30 tablet 01/27/19
== END 2019-01-27 17:17 | disposition home or self-care (01) | DRG 264 ==
LOC: JER 17:45 → JERBED 23:59 → J5S 01-21 17:02
PROVIDERS: ADMIT Internal Medicine; ATTEND Internal Medicine
PROC: 0W9G3ZX Drainage of Peritoneal Cavity, Percutaneous Approach, Diagnostic (ICD-10-PCS; principal; 2019-01-22)
DX: K74.69 Other cirrhosis of liver (principal); E11.9 Type 2 diabetes mellitus without complications; I10 Essential (primary) hypertension; K76.6 Portal hypertension; J90 Pleural effusion, not elsewhere classified; R18.8 Other ascites; E66.8 Other obesity; Z68.41 Body mass index [BMI] 40.0-44.9, adult
CPT/HCPCS: 36415; 71046-TC-FY; 74176-TC; 76705-TC; 76942-TC; 80053; 82042; 82140; 82150; 82465; 82550; 82945; 82962; 83615; 83690; 83986; 84157; 84478; 84484; 84703; 85025; 85610; 85730; 86704; 86706; 86707; 86708; 86709; 86803; 86850; 86900; 86901; 87070; 87075; 87102; 87116; 87205; 87206; 87210; 87340; 88108; 88305-TC; 93005; 93010; 99284-25; J1644

== ENCOUNTER 2021-01-26 12:45 | Inpatient (IN) | payer OTHER ==
[2021-01-26 14:01] LABS: BASO % 0.6 % (0-2.0); EOS % 0.3 % (0-4.5); HEMOGLOBIN 8.7 GM/dL (10.7-15.3); LYMPH % 26.4 % (8-40); MCH 34.4 pg (25.7-33.7); MCHC 34.8 g/dl (32.0-36.0); MEAN PLT VOLUME 7.7 fl (7.5-11.1); MONO % 13.2 % (3.8-10.2); NEUT % 59.5 % (42.8-82.8); PLATELET COUNT 162 10^3/uL (134-434); RBC 2.52 M/mm3 (3.60-5.2); RDW 16.5 % (11.6-15.6); WHITE BLOOD COUNT 2.6 K/mm3 (4.0-10.0)
[2021-01-26 14:07] LABS: INR 1.43 (0.83-1.09); PROTHROMBIN TIME (PATIENT) 17.7 SEC (9.7-13.0)
[2021-01-26 14:09] LABS: ACTIVATED PTT 34.1 SECONDS (25.2-36.5)
[2021-01-26 14:24] LABS: BLOOD UREA NITROGEN 16.9 mg/dL (7-18)
[2021-01-26 14:25] LABS: CALCIUM 7.8 mg/dL (8.5-10.1)
[2021-01-26 14:26] LABS: ALBUMIN 1.5 g/dl (3.4-5.0)
[2021-01-26 14:30] LABS: TOT PROT 8.5 g/dl (6.4-8.2)
[2021-01-26 14:31] LABS: LACTIC ACID 4.9 mmol/L (0.4-2.0)
[2021-01-26] MEDS ORDERED: LACTULOSE 20 GM/30 ML UDC (FOR ORAL USE ONLY) PO ONE (14:56)
[2021-01-26] MEDS ORDERED: LACTULOSE 20 GM/30 ML UDC (FOR ORAL USE ONLY) ONE ×2 (15:14→15:26)
[2021-01-26] MEDS ORDERED: LACTULOSE 20 GM/30 ML UDC (FOR RECTAL USE ONLY) PR ONE ×2 (15:21→15:35)
[2021-01-26] MEDS ORDERED: LACTATED RINGERS SOLUTION 1000 ML INFUS.BAG IV ONE (15:26)
[2021-01-26 15:30] LABS: PH,URINE 6.5 (5.0-8.0); URINE APPEARANCE CLEAR; URINE BILIRUBIN NEGATIVE (NEGATIVE); URINE COLOR YELLOW; URINE GLUCOSE (UA) NEGATIVE (NEGATIVE); URINE KETONE NEGATIVE (NEGATIVE); URINE LEUK ESTERASE NEGATIVE (NEGATIVE); URINE NITRITE NEGATIVE (NEGATIVE); URINE PROTEIN NEGATIVE (NEGATIVE); URINE UROBILINOGEN 0.2 mg/dL (0.2-1.0)
[2021-01-26 15:33] LABS: EPI CELLS 30.4 /uL (0-25.1); HYALINE CASTS 0.88 /uL (0-3.1); URINE BACTERIA 11.1 /uL (0-1359); URINE RBC 2.7 /uL (0-23.9); URINE WBC 4.3 /uL (0-25.8)
[2021-01-26] MEDS: ALBUMIN HUMAN 25% 100 ML VIAL IVPB SCH (18:21)
[2021-01-26] MEDS ORDERED: ACETAMINOPHEN 325 MG TABLET (FP) PO ONE (18:45)
[2021-01-26] MEDS ORDERED: ACETAMINOPHEN 325 MG TABLET (FP) ONE (18:46)
[2021-01-26] MEDS: NADOLOL 20 MG TABLET (FP) PO SCH (19:19)
[2021-01-26] MEDS: CEFTRIAXONE 1 GM in DEXTROSE 5%-WATER - 50 ML IVPB SCH (19:19)
[2021-01-26] MEDS ORDERED: CEFTRIAXONE 1 GM/50 ML BAG ONE (19:22)
[2021-01-26] MEDS: ALBUMIN HUMAN 25% 12.5 GM/50 ML VIAL IVPB SCH ×3 (19:39→23:23)
[2021-01-26 21:47] LABS: BASO % 0.6 % (0-2.0); HEMATOCRIT 23.6 % (32.4-45.2); HEMOGLOBIN 8.2 GM/dL (10.7-15.3); LYMPH % 23.5 % (8-40); MCH 34.2 pg (25.7-33.7); MCHC 34.8 g/dl (32.0-36.0); MEAN CELL VOLUME 98.2 fl (80-96); MEAN PLT VOLUME 7.4 fl (7.5-11.1); MONO % 15.5 % (3.8-10.2); NEUT % 59.4 % (42.8-82.8); PLATELET COUNT 138 10^3/uL (134-434); RBC 2.41 M/mm3 (3.60-5.2); RDW 16.6 % (11.6-15.6); WHITE BLOOD COUNT 2.8 K/mm3 (4.0-10.0)
[2021-01-26] MEDS ORDERED: LACTULOSE 20 GM/30 ML UDC (FOR ORAL USE ONLY) PO SCH (22:00)
[2021-01-26] MEDS ORDERED: HEPARIN NA (PORCINE) 5,000 UNITS/ML 1ML VIAL SQ SCH ×2 (22:00)
[2021-01-26] MEDS ORDERED: DEXTROSE 5%-WATER 100 ML IVPB ONE (22:25)
[2021-01-26] MEDS ORDERED: DOXYCYCLINE HYCLATE 100 MG VIAL ONE (22:25)
[2021-01-26 22:30] LABS: LACTIC ACID 3.7 mmol/L (0.4-2.0)
[2021-01-26] MEDS: PANTOPRAZOLE SODIUM 40 MG VIAL IVPUSH SCH (23:27)
[2021-01-26] MEDS: DOXYCYCLINE INJECTION 100 MG in DEXTROSE 5%-WATER 100 ML IVPB SCH (23:27)
[2021-01-26] MEDS: RIFAXIMIN 550 MG TABLET PO SCH (23:28)
[2021-01-27] MEDS: ALBUMIN HUMAN 25% 12.5 GM/50 ML VIAL IVPB SCH (00:48)
[2021-01-27] MEDS ORDERED: LACTULOSE 20 GM/30 ML UDC (FOR ORAL USE ONLY) PO PRN (08:19)
[2021-01-27 08:57] LABS: HEMATOCRIT 25.1 % (32.4-45.2); HEMOGLOBIN 8.7 GM/dL (10.7-15.3); MCH 34.4 pg (25.7-33.7); MCHC 34.5 g/dl (32.0-36.0); MEAN CELL VOLUME 99.9 fl (80-96); MEAN PLT VOLUME 8.2 fl (7.5-11.1); PLATELET COUNT 140 10^3/uL (134-434); RBC 2.52 M/mm3 (3.60-5.2); RDW 17.1 % (11.6-15.6); WHITE BLOOD COUNT 2.6 K/mm3 (4.0-10.0)
[2021-01-27 09:43] LABS: CALCIUM 7.7 mg/dL (8.5-10.1)
[2021-01-27 09:44] LABS: BLOOD UREA NITROGEN 16.5 mg/dL (7-18)
[2021-01-27 09:47] LABS: CREATININE 0.7 mg/dL (0.55-1.3)
[2021-01-27] MEDS ORDERED: LACTULOSE 20 GM/30 ML UDC (FOR RECTAL USE ONLY) PR SCH ×2 (10:00)
[2021-01-27] MEDS ORDERED: LACTULOSE 20 GM/30 ML UDC (FOR ORAL USE ONLY) PO SCH (10:00)
[2021-01-27] MEDS ORDERED: DOXYCYCLINE HYCLATE 100 MG VIAL ONE ×2 (11:33→20:16)
[2021-01-27] MEDS ORDERED: DEXTROSE 5%-WATER 100 ML IVPB ONE ×2 (11:33→20:16)
[2021-01-27] MEDS ORDERED: DEXTROSE 5%-WATER - 50 ML IVPB ONE ×2 (11:34→17:59)
[2021-01-27] MEDS ORDERED: cefTRIAXone SODIUM 1 GM VIAL ONE ×2 (11:34→17:59)
[2021-01-27] MEDS: DOXYCYCLINE INJECTION 100 MG in DEXTROSE 5%-WATER 100 ML IVPB SCH (11:37)
[2021-01-27] MEDS: NADOLOL 20 MG TABLET (FP) PO SCH (11:40)
[2021-01-27] MEDS: RIFAXIMIN 550 MG TABLET PO SCH ×2 (11:40→21:34)
[2021-01-27] MEDS: SPIRONOLACTONE 25 MG TABLET PO SCH (11:40)
[2021-01-27] MEDS: FUROSEMIDE 40 MG TABLET (FP) PO SCH (11:41)
[2021-01-27] MEDS: PANTOPRAZOLE SODIUM 40 MG VIAL IVPUSH SCH ×2 (11:41→21:34)
[2021-01-27 12:12] LABS: ANISOCYTOSIS 1+; MACROCYTOSIS 0; PLATELET ESTIMATE DECREASED
[2021-01-27] MEDS: KCL 10 MEQ IVPB 10 MEQ/100 ML INFUS.BAG IVPB SCH ×2 (12:31→14:24)
[2021-01-27] MEDS: CEFTRIAXONE 1 GM in DEXTROSE 5%-WATER - 50 ML IVPB SCH (12:34)
[2021-01-27] MEDS ORDERED: POTASSIUM CHLORIDE TABS 20 MEQ TABLET.ER (FP) PO ONE (14:00)
[2021-01-27] MEDS: LACTULOSE 20 GM/30 ML UDC (FOR ORAL USE ONLY) PO SCH ×2 (14:24→21:34)
[2021-01-27] MEDS ORDERED: CEFTRIAXONE 1 GM in DEXTROSE 5%-WATER - 50 ML IVPB ONE (15:17)
[2021-01-27 16:17] LABS: LACTIC ACID 3.5 mmol/L (0.4-2.0)
[2021-01-27] MEDS ORDERED: LACTATED RINGERS SOLUTION 1,000 ML/1,000 ML INFUS.BAG IV SCH (17:15)
[2021-01-27] MEDS ORDERED: DOXYCYCLINE INJECTION 100 MG in DEXTROSE 5%-WATER 100 ML IVPB ONE (20:00)
[2021-01-28] MEDS: LACTULOSE 20 GM/30 ML UDC (FOR ORAL USE ONLY) PO SCH (07:00)
[2021-01-28 09:15] LABS: HEMATOCRIT 23.9 % (32.4-45.2); HEMOGLOBIN 8.3 GM/dL (10.7-15.3); MCHC 34.9 g/dl (32.0-36.0); MEAN CELL VOLUME 97.7 fl (80-96); MEAN PLT VOLUME 7.6 fl (7.5-11.1); PLATELET COUNT 141 10^3/uL (134-434); RBC 2.45 M/mm3 (3.60-5.2); RDW 16.7 % (11.6-15.6); WHITE BLOOD COUNT 2.6 K/mm3 (4.0-10.0)
[2021-01-28 09:20] LABS: INR 1.61 (0.83-1.09); PROTHROMBIN TIME (PATIENT) 19.9 SEC (9.7-13.0)
[2021-01-28 09:47] LABS: BLOOD UREA NITROGEN 16.4 mg/dL (7-18); CALCIUM 7.7 mg/dL (8.5-10.1)
[2021-01-28 09:48] LABS: ALBUMIN 1.6 g/dl (3.4-5.0)
[2021-01-28 09:50] LABS: CREATININE 0.9 mg/dL (0.55-1.3); PHOSPHOROUS 3.5 mg/dL (2.5-4.9)
[2021-01-28 09:51] LABS: BILIRUBIN,TOTAL 0.8 mg/dL (0.2-1)
[2021-01-28 09:53] LABS: TOT PROT 6.9 g/dl (6.4-8.2)
[2021-01-28] MEDS: SPIRONOLACTONE 25 MG TABLET PO SCH (10:13)
[2021-01-28] MEDS: PANTOPRAZOLE SODIUM 40 MG VIAL IVPUSH SCH ×2 (10:13→21:12)
[2021-01-28] MEDS: NADOLOL 20 MG TABLET (FP) PO SCH (10:13)
[2021-01-28] MEDS: RIFAXIMIN 550 MG TABLET PO SCH ×2 (10:14→21:12)
[2021-01-28] MEDS: FUROSEMIDE 40 MG TABLET (FP) PO SCH (10:14)
[2021-01-28 11:34] LABS: ANISOCYTOSIS 1+; MACROCYTOSIS 0; OVALOCYTE 1+; PLATELET ESTIMATE DECREASED; TARGET CELLS 1+; TEAR DROP CELLS 1+
[2021-01-28 17:37] LABS: BF WBC & OTHER NUCLEATED CELLS 178 /mm3
[2021-01-28 20:22] LABS: BODY FLUID MACROPHAGES 18 %; BODY FLUID MONOCYTE 6 %; BODYL FLD EOSINOPHIL 1 %
[2021-01-29] MEDS ORDERED: SODIUM CHLORIDE 1,000 ML IV SCH (01:15)
[2021-01-29] MEDS: LACTULOSE 20 GM/30 ML UDC (FOR ORAL USE ONLY) PO SCH ×3 (06:13→21:06)
[2021-01-29 08:53] LABS: BASO % 0.5 % (0-2.0); HEMATOCRIT 24.4 % (32.4-45.2); HEMOGLOBIN 8.4 GM/dL (10.7-15.3); INR 1.59 (0.83-1.09); LYMPH % 27.4 % (8-40); MCH 34.4 pg (25.7-33.7); MCHC 34.2 g/dl (32.0-36.0); MEAN CELL VOLUME 100.5 fl (80-96); MEAN PLT VOLUME 7.9 fl (7.5-11.1); NEUT % 58.1 % (42.8-82.8); PLATELET COUNT 129 10^3/uL (134-434); PROTHROMBIN TIME (PATIENT) 19.7 SEC (9.7-13.0); RBC 2.43 M/mm3 (3.60-5.2); RDW 17.3 % (11.6-15.6); WHITE BLOOD COUNT 3.3 K/mm3 (4.0-10.0)
[2021-01-29 09:06] LABS: BLOOD UREA NITROGEN 16.9 mg/dL (7-18); CALCIUM 7.7 mg/dL (8.5-10.1); MAGNESIUM 2.1 mg/dL (1.8-2.4)
[2021-01-29 09:07] LABS: ALBUMIN 1.3 g/dl (3.4-5.0)
[2021-01-29 09:09] LABS: CREATININE 0.9 mg/dL (0.55-1.3); PHOSPHOROUS 3.7 mg/dL (2.5-4.9)
[2021-01-29 09:11] LABS: BILIRUBIN,TOTAL 0.8 mg/dL (0.2-1); TOT PROT 6.3 g/dl (6.4-8.2)
[2021-01-29 09:19] LABS: LACTIC ACID 2.7 mmol/L (0.4-2.0)
[2021-01-29] MEDS: PANTOPRAZOLE SODIUM 40 MG VIAL IVPUSH SCH ×2 (09:27→21:04)
[2021-01-29] MEDS: NADOLOL 20 MG TABLET (FP) PO SCH (09:28)
[2021-01-29] MEDS: FUROSEMIDE 40 MG TABLET (FP) PO SCH (09:28)
[2021-01-29] MEDS: SPIRONOLACTONE 25 MG TABLET PO SCH (09:28)
[2021-01-29] MEDS: RIFAXIMIN 550 MG TABLET PO SCH ×2 (09:28→21:04)
[2021-01-30] MEDS: LACTULOSE 20 GM/30 ML UDC (FOR ORAL USE ONLY) PO SCH ×3 (06:22→21:16)
[2021-01-30 09:40] LABS: HEMOGLOBIN 8.2 GM/dL (10.7-15.3)
[2021-01-30 09:51] LABS: HEMATOCRIT 23.8 % (32.4-45.2); MCH 33.8 pg (25.7-33.7); MCHC 34.3 g/dl (32.0-36.0); MEAN CELL VOLUME 98.6 fl (80-96); MEAN PLT VOLUME 8.8 fl (7.5-11.1); PLATELET COUNT 148 10^3/uL (134-434); RBC 2.41 M/mm3 (3.60-5.2)
[2021-01-30 09:54] LABS: BLOOD UREA NITROGEN 14.5 mg/dL (7-18); CALCIUM 7.6 mg/dL (8.5-10.1); CHLORIDE 111 mmol/L (98-107); CO2 22 mmol/L (21-32); CREATININE 0.9 mg/dL (0.55-1.3); GLUCOSE,RANDOM 79 mg/dL (74-106); SODIUM 140 mmol/L (136-145)
[2021-01-30 09:55] LABS: ALBUMIN 1.4 g/dl (3.4-5.0); ALK PHOS 174 U/L (45-117); BILIRUBIN,TOTAL 0.8 mg/dL (0.2-1); PHOSPHOROUS 4.2 mg/dL (2.5-4.9); SGOT/AST 30 U/L (15-37); SGPT/ALT 14 U/L (13-61); TOT PROT 6.6 g/dl (6.4-8.2)
[2021-01-30] MEDS: RIFAXIMIN 550 MG TABLET PO SCH ×2 (11:10→21:16)
[2021-01-30] MEDS: SPIRONOLACTONE 25 MG TABLET PO SCH (11:11)
[2021-01-30] MEDS: PANTOPRAZOLE SODIUM 40 MG VIAL IVPUSH SCH ×2 (11:11→21:16)
[2021-01-30] MEDS: NADOLOL 20 MG TABLET (FP) PO SCH (11:11)
[2021-01-30] MEDS: FUROSEMIDE 40 MG TABLET (FP) PO SCH ×3 (11:11→13:42)
[2021-01-30 11:59] LABS: ANISOCYTOSIS 0; HELMET CELLS 0; HOWELL-JOLLY BODIES 0; MACROCYTOSIS 0; OVALOCYTE 0; PLATELET ESTIMATE DECREASED; ROULEAU 0; SICKELED CELLS 0; TARGET CELLS 0; TEAR DROP CELLS 0; TOXIC GRANULATION 0
[2021-01-31] MEDS ORDERED: LACTULOSE 20 GM/30 ML UDC (FOR RECTAL USE ONLY) PR ONE ×4 (06:56→11:00)
[2021-01-31 07:24] LABS: ARTERIAL BLD GAS O2 SATURATION 96.9 % (95-98); ARTERIAL BLOOD GAS BASE EXCESS -0.9 mmol/L (-2-2); ARTERIAL BLOOD GAS PO2 77.4 mmHg (80-100); ARTERIAL BLOOD GAS pH 7.533 (7.350-7.450)
[2021-01-31] MEDS ORDERED: RAPID SEQUENCE INTUBATION KIT NR ONE (07:59)
[2021-01-31] MEDS ORDERED: ROCURONIUM BROMIDE 100 MG/10 ML VIAL ONE (08:01)
[2021-01-31] MEDS ORDERED: PROPOFOL 1,000,000 MCG/100 ML VIAL ONE (08:09)
[2021-01-31] MEDS ORDERED: ROCURONIUM BROMIDE 50 MG/5 ML VIAL IVPUSH ONE (08:19)
[2021-01-31] MEDS ORDERED: PROPOFOL 1,000,000 MCG/100 ML VIAL IVPB SCH (08:30)
[2021-01-31] MEDS: FENTANYL NS IVPB 500 MCG/100 ML BAG IVPB SCH (08:30)
[2021-01-31] MEDS ORDERED: VANCOMYCIN 1 GM in D5W (PRE-DOCKED) 1,000 MG/250 ML IVPB ONE (12:00)
[2021-01-31 12:33] LABS: ARTERIAL BLD GAS O2 SATURATION 98.3 % (95-98); ARTERIAL BLOOD GAS BASE EXCESS -5.6 mmol/L (-2-2); ARTERIAL BLOOD GAS PO2 133.7 mmHg (80-100)
[2021-01-31 12:34] LABS: ALLENS TEST POSITIVE; VENT MODE A/C; VENT RATE 12
[2021-01-31] MEDS: MUPIROCIN 2% TOPICAL OINTMENT FOR DECOLONIZATION NS SCH ×2 (13:08→22:49)
[2021-01-31] MEDS ORDERED: AMPICILLIN NA/SULBACTAM NA 1.5 GM VIAL ONE ×2 (13:10→22:40)
[2021-01-31] MEDS ORDERED: SODIUM CHLORIDE 100 ML IVPB ONE ×2 (13:10→22:40)
[2021-01-31] MEDS: AMPICILLIN NA/SULBACTAM NA 1.5 GM in SODIUM CHLORIDE 100 ML IVPB SCH ×3 (13:14→22:48)
[2021-01-31] MEDS ORDERED: FUROSEMIDE 40 MG/4 ML INJECTABLE VIAL IVPUSH SCH (13:30)
[2021-01-31 13:40] LABS: BASO % 0.1 % (0-2.0); EOS % 0.1 % (0-4.5); HEMATOCRIT 31.3 % (32.4-45.2); HEMOGLOBIN 10.6 GM/dL (10.7-15.3); LYMPH % 7.3 % (8-40); MCH 33.8 pg (25.7-33.7); MCHC 33.8 g/dl (32.0-36.0); MEAN CELL VOLUME 100.1 fl (80-96); MONO % 4.9 % (3.8-10.2); NEUT % 87.6 % (42.8-82.8); PLATELET COUNT 192 10^3/uL (134-434); RBC 3.13 M/mm3 (3.60-5.2); RDW 17.4 % (11.6-15.6); WHITE BLOOD COUNT 8.4 K/mm3 (4.0-10.0)
[2021-01-31 13:57] LABS: HIV INTERPRETATION NEGATIVE (NEGATIVE)
[2021-01-31] MEDS ORDERED: FUROSEMIDE 40 MG TABLET (FP) PO SCH (14:00)
[2021-01-31 14:04] LABS: LACTIC ACID 2.9 mmol/L (0.4-2.0)
[2021-01-31 14:12] LABS: CALCIUM 8.2 mg/dL (8.5-10.1); MAGNESIUM 2.2 mg/dL (1.8-2.4)
[2021-01-31 14:14] LABS: PHOSPHOROUS 5.3 mg/dL (2.5-4.9)
[2021-01-31 14:15] LABS: CREATININE 1.2 mg/dL (0.55-1.3)
[2021-01-31 14:16] LABS: BILIRUBIN,TOTAL 1.1 mg/dL (0.2-1); TOT PROT 7.8 g/dl (6.4-8.2)
[2021-01-31 14:33] LABS: ALBUMIN 1.6 g/dl (3.4-5.0); BLOOD UREA NITROGEN 19.2 mg/dL (7-18)
[2021-01-31] MEDS: LACTULOSE 20 GM/30 ML UDC (FOR RECTAL USE ONLY) PR SCH ×2 (18:02→22:49)
[2021-01-31] MEDS: LACTULOSE 20 GM/30 ML UDC (FOR ORAL USE ONLY) PO SCH (18:02)
[2021-01-31] MEDS ORDERED: PT OWN MED DRAWER 7, Y5N ONE (18:23)
[2021-01-31] MEDS: MIDAZOLAM IN 0.9 % SOD.CHLORID 100 MG/100 ML PLAST..BAG IVPB SCH (18:34)
[2021-01-31] MEDS ORDERED: SODIUM CHLORIDE 500 ML IV STA ×2 (19:00→20:05)
[2021-01-31] MEDS: VASOPRESSIN 40 UNITS/100 ML BAG IV SCH (20:20)
[2021-01-31] MEDS ORDERED: SODIUM CHLORIDE 1,000 ML IV STA (21:39)
[2021-01-31] MEDS ORDERED: NOREPINEPHRINE NS PREMIX 16,000 MCG/500 ML BAG IVPB ONE (22:40)
[2021-01-31] MEDS: PANTOPRAZOLE SODIUM 40 MG VIAL IVPUSH SCH (22:48)
[2021-01-31] MEDS: CHLORHEXIDINE GLUCONATE 4% CLEANSER FOR DECOLONIZATION TP SCH (22:49)
[2021-01-31] MEDS: RIFAXIMIN 550 MG TABLET PO SCH (22:50)
[2021-01-31] MEDS: NOREPINEPHRINE NS PREMIX 16,000 MCG/500 ML BAG IVPB SCH (22:50)
[2021-02-01] MEDS ORDERED: SODIUM CHLORIDE 100 ML IVPB ONE ×4 (02:14→21:51)
[2021-02-01] MEDS ORDERED: AMPICILLIN NA/SULBACTAM NA 1.5 GM VIAL ONE ×4 (02:14→21:51)
[2021-02-01] MEDS: AMPICILLIN NA/SULBACTAM NA 1.5 GM in SODIUM CHLORIDE 100 ML IVPB SCH ×4 (02:17→21:52)
[2021-02-01] MEDS ORDERED: SODIUM CHLORIDE 500 ML IV STA (05:02)
[2021-02-01] MEDS ORDERED: PT OWN MED DRAWER 7, Y5N ONE ×2 (05:36→21:50)
[2021-02-01] MEDS: LACTULOSE 20 GM/30 ML UDC (FOR RECTAL USE ONLY) PR SCH ×3 (05:53→21:53)
[2021-02-01 06:05] LABS: BASO % 0.2 % (0-2.0); EOS % 0.2 % (0-4.5); HEMOGLOBIN 8.9 GM/dL (10.7-15.3); LYMPH % 11.8 % (8-40); MCH 34.2 pg (25.7-33.7); MCHC 34.3 g/dl (32.0-36.0); MEAN CELL VOLUME 99.7 fl (80-96); MEAN PLT VOLUME 8.2 fl (7.5-11.1); MONO % 5.8 % (3.8-10.2); PLATELET COUNT 180 10^3/uL (134-434); RBC 2.61 M/mm3 (3.60-5.2); RDW 17.2 % (11.6-15.6); WHITE BLOOD COUNT 8.3 K/mm3 (4.0-10.0)
[2021-02-01 06:30] LABS: CALCIUM 7.1 mg/dL (8.5-10.1)
[2021-02-01 06:31] LABS: ALBUMIN 1.3 g/dl (3.4-5.0)
[2021-02-01 06:34] LABS: CREATININE 1.3 mg/dL (0.55-1.3); PHOSPHOROUS 6.4 mg/dL (2.5-4.9)
[2021-02-01 06:36] LABS: TOT PROT 6.6 g/dl (6.4-8.2)
[2021-02-01 06:37] LABS: BLOOD UREA NITROGEN 26.6 mg/dL (7-18)
[2021-02-01] MEDS: FENTANYL NS IVPB 500 MCG/100 ML BAG IVPB SCH ×2 (06:56→10:19)
[2021-02-01] MEDS: PANTOPRAZOLE SODIUM 40 MG VIAL IVPUSH SCH ×2 (10:19→21:52)
[2021-02-01] MEDS: SPIRONOLACTONE 25 MG TABLET PO SCH (10:20)
[2021-02-01] MEDS: RIFAXIMIN 550 MG TABLET PO SCH ×2 (10:21→21:47)
[2021-02-01] MEDS: MUPIROCIN 2% TOPICAL OINTMENT FOR DECOLONIZATION NS SCH ×2 (10:21→21:52)
[2021-02-01] MEDS: MIDAZOLAM IN 0.9 % SOD.CHLORID 100 MG/100 ML PLAST..BAG IVPB SCH ×2 (10:22→19:45)
[2021-02-01] MEDS: NADOLOL 20 MG TABLET (FP) PO SCH (10:22)
[2021-02-01] MEDS: SODIUM CHLORIDE 1,000 ML IV SCH (13:45)
[2021-02-01 17:13] LABS: BODY FLUID ALBUMIN 0.3 g/dL (Not Estab.)
[2021-02-01] MEDS: NOREPINEPHRINE NS PREMIX 16,000 MCG/500 ML BAG IVPB SCH (20:55)
[2021-02-01] MEDS: VASOPRESSIN 40 UNITS/100 ML BAG IV SCH (21:46)
[2021-02-01] MEDS: CHLORHEXIDINE GLUCONATE 4% CLEANSER FOR DECOLONIZATION TP SCH (21:53)
[2021-02-02] MEDS ORDERED: AMPICILLIN NA/SULBACTAM NA 1.5 GM VIAL ONE ×4 (01:12→20:25)
[2021-02-02] MEDS ORDERED: SODIUM CHLORIDE 100 ML IVPB ONE ×4 (01:13→20:25)
[2021-02-02] MEDS: SODIUM CHLORIDE 1,000 ML IV SCH ×2 (01:31→14:20)
[2021-02-02] MEDS: FENTANYL NS IVPB 500 MCG/100 ML BAG IVPB SCH ×2 (01:38→09:33)
[2021-02-02] MEDS: AMPICILLIN NA/SULBACTAM NA 1.5 GM in SODIUM CHLORIDE 100 ML IVPB SCH ×4 (02:48→20:53)
[2021-02-02] MEDS: LACTULOSE 20 GM/30 ML UDC (FOR RECTAL USE ONLY) PR SCH (05:53)
[2021-02-02 06:38] LABS: BASO % 0.5 % (0-2.0); EOS % 0.9 % (0-4.5); HEMATOCRIT 24.5 % (32.4-45.2); HEMOGLOBIN 8.3 GM/dL (10.7-15.3); LYMPH % 15.2 % (8-40); MCH 34.5 pg (25.7-33.7); MCHC 33.9 g/dl (32.0-36.0); MEAN CELL VOLUME 101.7 fl (80-96); MEAN PLT VOLUME 7.6 fl (7.5-11.1); MONO % 9.7 % (3.8-10.2); NEUT % 73.7 % (42.8-82.8); PLATELET COUNT 168 10^3/uL (134-434); RBC 2.41 M/mm3 (3.60-5.2); RDW 17.6 % (11.6-15.6)
[2021-02-02 06:40] LABS: INR 1.54 (0.83-1.09)
[2021-02-02 06:58] LABS: CALCIUM 7.5 mg/dL (8.5-10.1)
[2021-02-02 07:00] LABS: ALBUMIN 1.4 g/dl (3.4-5.0); BLOOD UREA NITROGEN 34.4 mg/dL (7-18)
[2021-02-02 07:03] LABS: TOT PROT 6.8 g/dl (6.4-8.2)
[2021-02-02 07:05] LABS: CREATININE 1.4 mg/dL (0.55-1.3)
[2021-02-02 07:54] LABS: MAGNESIUM 2.2 mg/dL (1.8-2.4)
[2021-02-02] MEDS: PANTOPRAZOLE SODIUM 40 MG VIAL IVPUSH SCH ×2 (09:33→21:41)
[2021-02-02] MEDS: NADOLOL 20 MG TABLET (FP) PO SCH (10:02)
[2021-02-02] MEDS: SPIRONOLACTONE 25 MG TABLET PO SCH (10:02)
[2021-02-02] MEDS: MUPIROCIN 2% TOPICAL OINTMENT FOR DECOLONIZATION NS SCH ×2 (10:37→21:41)
[2021-02-02] MEDS: RIFAXIMIN 550 MG TABLET PO SCH (10:38)
[2021-02-02] MEDS: LACTULOSE 20 GM/30 ML UDC (FOR ORAL USE ONLY) PO SCH (14:26)
[2021-02-02] MEDS: HEPARIN NA (PORCINE) 5,000 UNITS/ML 1ML VIAL SQ SCH ×2 (14:27→21:41)
[2021-02-02] MEDS: CHLORHEXIDINE GLUCONATE 4% CLEANSER FOR DECOLONIZATION TP SCH (21:41)
[2021-02-02] MEDS ORDERED: LACTULOSE 20 GM/30 ML UDC (FOR ORAL USE ONLY) PO PRN (21:53)
[2021-02-02] MEDS ORDERED: LACTULOSE 20 GM/30 ML UDC (FOR RECTAL USE ONLY) PR SCH (22:00)
[2021-02-02] MEDS: NOREPINEPHRINE NS PREMIX 16,000 MCG/500 ML BAG IVPB SCH (23:15)
[2021-02-02] MEDS: VASOPRESSIN 40 UNITS/100 ML BAG IV SCH (23:15)
[2021-02-02] MEDS: MIDAZOLAM IN 0.9 % SOD.CHLORID 100 MG/100 ML PLAST..BAG IVPB SCH (23:15)
[2021-02-03] MEDS: LACTULOSE 20 GM/30 ML UDC (FOR ORAL USE ONLY) PO SCH ×2 (01:15→06:14)
[2021-02-03] MEDS ORDERED: AMPICILLIN NA/SULBACTAM NA 1.5 GM VIAL ONE ×4 (03:24→20:52)
[2021-02-03] MEDS ORDERED: SODIUM CHLORIDE 100 ML IVPB ONE ×4 (03:25→20:52)
[2021-02-03] MEDS: AMPICILLIN NA/SULBACTAM NA 1.5 GM in SODIUM CHLORIDE 100 ML IVPB SCH ×4 (03:44→21:00)
[2021-02-03] MEDS: HEPARIN NA (PORCINE) 5,000 UNITS/ML 1ML VIAL SQ SCH ×3 (06:14→23:29)
[2021-02-03 06:32] LABS: BASO % 0.6 % (0-2.0); EOS % 0.4 % (0-4.5); HEMOGLOBIN 7.9 GM/dL (10.7-15.3); LYMPH % 14.3 % (8-40); MCH 33.8 pg (25.7-33.7); MEAN CELL VOLUME 102.2 fl (80-96); MEAN PLT VOLUME 7.4 fl (7.5-11.1); MONO % 10.1 % (3.8-10.2); NEUT % 74.6 % (42.8-82.8); PLATELET COUNT 146 10^3/uL (134-434); RBC 2.35 M/mm3 (3.60-5.2); RDW 17.5 % (11.6-15.6)
[2021-02-03 06:58] LABS: CALCIUM 7.6 mg/dL (8.5-10.1)
[2021-02-03 06:59] LABS: ALBUMIN 1.3 g/dl (3.4-5.0); BLOOD UREA NITROGEN 40.6 mg/dL (7-18); MAGNESIUM 2.1 mg/dL (1.8-2.4)
[2021-02-03 07:02] LABS: CREATININE 1.4 mg/dL (0.55-1.3); PHOSPHOROUS 5.3 mg/dL (2.5-4.9)
[2021-02-03 07:04] LABS: BILIRUBIN,TOTAL 1.3 mg/dL (0.2-1); TOT PROT 6.8 g/dl (6.4-8.2)
[2021-02-03] MEDS: PANTOPRAZOLE SODIUM 40 MG VIAL IVPUSH SCH ×2 (09:11→23:29)
[2021-02-03] MEDS: MUPIROCIN 2% TOPICAL OINTMENT FOR DECOLONIZATION NS SCH ×2 (09:11→23:29)
[2021-02-03] MEDS: FENTANYL NS IVPB 500 MCG/100 ML BAG IVPB SCH (09:25)
[2021-02-03] MEDS ORDERED: LACTATED RINGERS SOLUTION 1,000 ML/1,000 ML INFUS.BAG IV SCH (11:30)
[2021-02-03] MEDS: LACTULOSE 20 GM/30 ML UDC (FOR RECTAL USE ONLY) PR SCH ×2 (15:24→23:29)
[2021-02-03 22:39] LABS: ARTERIAL BLD GAS O2 SATURATION 97.6 % (95-98); ARTERIAL BLOOD GAS BASE EXCESS -5.5 mmol/L (-2-2); ARTERIAL BLOOD GAS PO2 107.4 mmHg (80-100); ARTERIAL BLOOD GAS pH 7.334 (7.350-7.450)
[2021-02-03 22:43] LABS: VENT MODE V-A/C; VENT RATE 14
[2021-02-03] MEDS: NOREPINEPHRINE NS PREMIX 16,000 MCG/500 ML BAG IVPB SCH (23:29)
[2021-02-03] MEDS: CHLORHEXIDINE GLUCONATE 4% CLEANSER FOR DECOLONIZATION TP SCH (23:29)
[2021-02-03] MEDS: VASOPRESSIN 40 UNITS/100 ML BAG IV SCH (23:29)
[2021-02-04] MEDS ORDERED: SODIUM CHLORIDE 100 ML IVPB ONE ×4 (01:18→21:48)
[2021-02-04] MEDS ORDERED: AMPICILLIN NA/SULBACTAM NA 1.5 GM VIAL ONE ×4 (01:18→21:48)
[2021-02-04] MEDS: AMPICILLIN NA/SULBACTAM NA 1.5 GM in SODIUM CHLORIDE 100 ML IVPB SCH ×4 (03:30→21:49)
[2021-02-04] MEDS: LACTULOSE 20 GM/30 ML UDC (FOR RECTAL USE ONLY) PR SCH ×3 (05:46→22:37)
[2021-02-04] MEDS: HEPARIN NA (PORCINE) 5,000 UNITS/ML 1ML VIAL SQ SCH ×3 (05:46→21:48)
[2021-02-04 07:03] LABS: BASO % 0.8 % (0-2.0); EOS % 0.7 % (0-4.5); HEMATOCRIT 23.3 % (32.4-45.2); HEMOGLOBIN 7.9 GM/dL (10.7-15.3); LYMPH % 21.1 % (8-40); MCHC 33.8 g/dl (32.0-36.0); MEAN CELL VOLUME 100.6 fl (80-96); MEAN PLT VOLUME 7.7 fl (7.5-11.1); MONO % 10.6 % (3.8-10.2); NEUT % 66.8 % (42.8-82.8); PLATELET COUNT 139 10^3/uL (134-434); RBC 2.31 M/mm3 (3.60-5.2); RDW 17.8 % (11.6-15.6); WHITE BLOOD COUNT 4.5 K/mm3 (4.0-10.0)
[2021-02-04 07:12] LABS: ALBUMIN 1.2 g/dl (3.4-5.0); CALCIUM 7.9 mg/dL (8.5-10.1)
[2021-02-04 07:13] LABS: BLOOD UREA NITROGEN 34.3 mg/dL (7-18); MAGNESIUM 2.5 mg/dL (1.8-2.4)
[2021-02-04 07:15] LABS: CREATININE 1.1 mg/dL (0.55-1.3)
[2021-02-04 07:16] LABS: PHOSPHOROUS 2.9 mg/dL (2.5-4.9); TOT PROT 6.7 g/dl (6.4-8.2)
[2021-02-04 07:20] LABS: BILIRUBIN,TOTAL 0.9 mg/dL (0.2-1)
[2021-02-04] MEDS: PANTOPRAZOLE SODIUM 40 MG VIAL IVPUSH SCH (10:07)
[2021-02-04] MEDS: MUPIROCIN 2% TOPICAL OINTMENT FOR DECOLONIZATION NS SCH ×2 (10:14→21:49)
[2021-02-04] MEDS ORDERED: AMINO ACIDS 4.25%/D5W 1,000 ML IV SCH (13:00)
[2021-02-04] MEDS ORDERED: MULTIVIT INJ. ADULT COMBO WITH VIT K 1 COMBO 10 ML VIAL IV SCH (13:15)
[2021-02-04] MEDS ORDERED: PT OWN MED DRAWER 7, Y5N ONE ×3 (13:55→21:47)
[2021-02-04] MEDS: NOREPINEPHRINE NS PREMIX 16,000 MCG/500 ML BAG IVPB SCH (15:00)
[2021-02-04] MEDS: CHLORHEXIDINE GLUCONATE 4% CLEANSER FOR DECOLONIZATION TP SCH (21:49)
[2021-02-04] MEDS ORDERED: FAT EMUL/SOY/MCT/OLIV/FISH OIL 250 ML IV SCH (22:00)
[2021-02-05] MEDS: AMPICILLIN NA/SULBACTAM NA 1.5 GM in SODIUM CHLORIDE 100 ML IVPB SCH ×4 (03:45→21:51)
[2021-02-05] MEDS ORDERED: AMPICILLIN NA/SULBACTAM NA 1.5 GM VIAL ONE ×4 (04:46→21:48)
[2021-02-05] MEDS ORDERED: SODIUM CHLORIDE 100 ML IVPB ONE ×4 (04:46→21:48)
[2021-02-05] MEDS: HEPARIN NA (PORCINE) 5,000 UNITS/ML 1ML VIAL SQ SCH ×3 (05:20→21:50)
[2021-02-05] MEDS: LACTULOSE 20 GM/30 ML UDC (FOR RECTAL USE ONLY) PR SCH ×3 (05:22→21:50)
[2021-02-05 07:32] LABS: BASO % 0.7 % (0-2.0); EOS % 1.6 % (0-4.5); HEMOGLOBIN 7.7 GM/dL (10.7-15.3); MCH 34.1 pg (25.7-33.7); MCHC 33.7 g/dl (32.0-36.0); MEAN CELL VOLUME 101.3 fl (80-96); MEAN PLT VOLUME 7.7 fl (7.5-11.1); MONO % 12.3 % (3.8-10.2); NEUT % 61.4 % (42.8-82.8); PLATELET COUNT 116 10^3/uL (134-434); RBC 2.27 M/mm3 (3.60-5.2); RDW 17.8 % (11.6-15.6); WHITE BLOOD COUNT 3.4 K/mm3 (4.0-10.0)
[2021-02-05 07:53] LABS: ALBUMIN 1.1 g/dl (3.4-5.0)
[2021-02-05 07:56] LABS: CALCIUM 7.6 mg/dL (8.5-10.1); CREATININE 0.8 mg/dL (0.55-1.3); MAGNESIUM 2.2 mg/dL (1.8-2.4)
[2021-02-05 07:57] LABS: BLOOD UREA NITROGEN 29.3 mg/dL (7-18)
[2021-02-05 07:58] LABS: TOT PROT 6.2 g/dl (6.4-8.2)
[2021-02-05 08:01] LABS: PHOSPHOROUS 1.7 mg/dL (2.5-4.9)
[2021-02-05 08:02] LABS: BILIRUBIN,TOTAL 0.9 mg/dL (0.2-1)
[2021-02-05] MEDS ORDERED: POTASSIUM CHLORIDE 20 MEQ PREMIX IVPB 100 ML IVPB ONE (09:15)
[2021-02-05] MEDS: PANTOPRAZOLE SODIUM 40 MG VIAL IVPUSH SCH (09:26)
[2021-02-05] MEDS ORDERED: PT OWN MED DRAWER 7, Y5N ONE ×2 (13:19→14:13)
[2021-02-05] MEDS: CHLORHEXIDINE GLUCONATE 4% CLEANSER FOR DECOLONIZATION TP SCH (21:51)
[2021-02-06] MEDS ORDERED: AMPICILLIN NA/SULBACTAM NA 1.5 GM VIAL ONE ×4 (00:36→21:07)
[2021-02-06] MEDS ORDERED: SODIUM CHLORIDE 100 ML IVPB ONE ×4 (00:36→21:07)
[2021-02-06] MEDS: AMPICILLIN NA/SULBACTAM NA 1.5 GM in SODIUM CHLORIDE 100 ML IVPB SCH ×4 (02:55→21:10)
[2021-02-06] MEDS: LACTULOSE 20 GM/30 ML UDC (FOR ORAL USE ONLY) PO SCH ×3 (06:02→22:29)
[2021-02-06] MEDS: HEPARIN NA (PORCINE) 5,000 UNITS/ML 1ML VIAL SQ SCH ×3 (06:03→21:11)
[2021-02-06 07:07] LABS: BASO % 0.5 % (0-2.0); EOS % 1.5 % (0-4.5); HEMATOCRIT 22.3 % (32.4-45.2); HEMOGLOBIN 7.6 GM/dL (10.7-15.3); LYMPH % 25.1 % (8-40); MCH 34.2 pg (25.7-33.7); MCHC 34.1 g/dl (32.0-36.0); MEAN CELL VOLUME 100.4 fl (80-96); MEAN PLT VOLUME 8.3 fl (7.5-11.1); MONO % 11.3 % (3.8-10.2); NEUT % 61.6 % (42.8-82.8); PLATELET COUNT 93 10^3/uL (134-434); RBC 2.22 M/mm3 (3.60-5.2); RDW 18.2 % (11.6-15.6)
[2021-02-06 07:45] LABS: BLOOD UREA NITROGEN 21.7 mg/dL (7-18); CALCIUM 7.2 mg/dL (8.5-10.1)
[2021-02-06 07:48] LABS: CREATININE 0.6 mg/dL (0.55-1.3); PHOSPHOROUS 1.8 mg/dL (2.5-4.9)
[2021-02-06 07:49] LABS: BILIRUBIN,TOTAL 0.8 mg/dL (0.2-1)
[2021-02-06] MEDS ORDERED: POTASSIUM PHOSPHATE 30 MM in DEXTROSE 5%-WATER - 250 ML IVPB ONE (09:00)
[2021-02-06] MEDS ORDERED: PT OWN MED DRAWER 7, Y5N ONE (09:31)
[2021-02-06] MEDS: RIFAXIMIN 550 MG TABLET PO SCH ×2 (09:33→22:29)
[2021-02-06] MEDS: PANTOPRAZOLE SODIUM 40 MG VIAL IVPUSH SCH (09:33)
[2021-02-06] MEDS: MIDODRINE HCL 5 MG TABLET PO SCH ×2 (12:34→17:46)
[2021-02-06] MEDS ORDERED: PROCHLORPERAZINE INJECTION 10 MG/2 ML VIAL IM ONE (21:00)
[2021-02-06] MEDS ORDERED: TRIMETHOBENZAMIDE HCL 200MG/2ML INJ IM ONE (21:08)
[2021-02-06] MEDS: CHLORHEXIDINE GLUCONATE 4% CLEANSER FOR DECOLONIZATION TP SCH (21:21)
[2021-02-07] MEDS ORDERED: ACETAMINOPHEN 1000 MG/100 ML VIAL IVPB ONE (02:58)
[2021-02-07] MEDS: AMPICILLIN NA/SULBACTAM NA 1.5 GM in SODIUM CHLORIDE 100 ML IVPB SCH (03:55)
[2021-02-07] MEDS: LACTULOSE 20 GM/30 ML UDC (FOR ORAL USE ONLY) PO SCH (05:04)
[2021-02-07] MEDS: HEPARIN NA (PORCINE) 5,000 UNITS/ML 1ML VIAL SQ SCH (05:28)
[2021-02-07 07:03] LABS: HEMATOCRIT 23.1 % (32.4-45.2); HEMOGLOBIN 7.8 GM/dL (10.7-15.3); MCH 33.7 pg (25.7-33.7); MCHC 33.6 g/dl (32.0-36.0); MEAN CELL VOLUME 100.3 fl (80-96); PLATELET COUNT 77 10^3/uL (134-434); RBC 2.31 M/mm3 (3.60-5.2); RDW 17.6 % (11.6-15.6); WHITE BLOOD COUNT 3.5 K/mm3 (4.0-10.0)
[2021-02-07 07:06] LABS: CHLORIDE 120 mmol/L (98-107); SODIUM 147 mmol/L (136-145)
[2021-02-07 07:10] LABS: ANION GAP 7 MMOL/L (8-16); BLOOD UREA NITROGEN 20.2 mg/dL (7-18); CO2 20 mmol/L (21-32)
[2021-02-07 07:13] LABS: BILIRUBIN,DIRECT 0.4 mg/dL (0.0-0.2); SGOT/AST 41 U/L (15-37); SGPT/ALT 10 U/L (13-61)
[2021-02-07 07:14] LABS: CREATININE 0.8 mg/dL (0.55-1.3); GLUCOSE,RANDOM 109 mg/dL (74-106)
[2021-02-07 07:15] LABS: BILIRUBIN,TOTAL 0.8 mg/dL (0.2-1); TOT PROT 6.2 g/dl (6.4-8.2)
[2021-02-07 07:16] LABS: ALK PHOS 147 U/L (45-117)
[2021-02-07 08:06] LABS: CALCIUM 6.9 mg/dL (8.5-10.1)
[2021-02-07 08:59] LABS: HELMET CELLS 0; HOWELL-JOLLY BODIES 0; OVALOCYTE 0; ROULEAU 0; SICKELED CELLS 0; TARGET CELLS 0; TEAR DROP CELLS 0; TOXIC GRANULATION 0
[2021-02-07 09:01] LABS: PLATELET ESTIMATE DECREASED
[2021-02-07 09:03] LABS: ANISOCYTOSIS 1+; MACROCYTOSIS 1+
[2021-02-07] MEDS: PANTOPRAZOLE SODIUM 40 MG VIAL IVPUSH SCH (10:48)
[2021-02-07] MEDS ORDERED: AMINO ACIDS 4.25%/D5W 1,000 ML IV SCH (13:15)
[2021-02-07] MEDS: MIDODRINE HCL 5 MG TABLET PO SCH ×2 (14:30→18:51)
[2021-02-07] MEDS: NOREPINEPHRINE NS PREMIX 16,000 MCG/500 ML BAG IVPB SCH (16:33)
[2021-02-07] MEDS: LACTULOSE 20 GM/30 ML UDC (FOR RECTAL USE ONLY) PR SCH ×2 (16:34→22:30)
[2021-02-07] MEDS: MULTIVIT INJ. ADULT COMBO WITH VIT K 1 COMBO 10 ML VIAL IV SCH (17:14)
[2021-02-07] MEDS: AMINO ACIDS 4.25%/D5W 1,000 ML IV SCH (17:14)
[2021-02-07] MEDS: CHLORHEXIDINE GLUCONATE 4% CLEANSER FOR DECOLONIZATION TP SCH (22:03)
[2021-02-08] MEDS: NOREPINEPHRINE NS PREMIX 16,000 MCG/500 ML BAG IVPB SCH (05:29)
[2021-02-08] MEDS: LACTULOSE 20 GM/30 ML UDC (FOR RECTAL USE ONLY) PR SCH ×3 (05:30→23:00)
[2021-02-08 06:50] LABS: HEMATOCRIT 22.8 % (32.4-45.2); HEMOGLOBIN 7.7 GM/dL (10.7-15.3); MCH 34.2 pg (25.7-33.7); MCHC 33.7 g/dl (32.0-36.0); MEAN CELL VOLUME 101.3 fl (80-96); MEAN PLT VOLUME 8.7 fl (7.5-11.1); PLATELET COUNT 91 10^3/uL (134-434); RBC 2.25 M/mm3 (3.60-5.2); RDW 18.6 % (11.6-15.6); WHITE BLOOD COUNT 3.5 K/mm3 (4.0-10.0)
[2021-02-08 07:06] LABS: CALCIUM 7.3 mg/dL (8.5-10.1)
[2021-02-08 07:07] LABS: BLOOD UREA NITROGEN 27.6 mg/dL (7-18); MAGNESIUM 2.3 mg/dL (1.8-2.4)
[2021-02-08 07:09] LABS: PHOSPHOROUS 3.3 mg/dL (2.5-4.9)
[2021-02-08 07:10] LABS: CREATININE 0.7 mg/dL (0.55-1.3)
[2021-02-08 07:11] LABS: BILIRUBIN,TOTAL 0.7 mg/dL (0.2-1)
[2021-02-08 07:37] LABS: ADD RBC MORPHOLOGY YES
[2021-02-08] MEDS: PANTOPRAZOLE SODIUM 40 MG VIAL IVPUSH SCH (10:09)
[2021-02-08] MEDS: MIDODRINE HCL 5 MG TABLET PO SCH ×3 (10:09→18:11)
[2021-02-08] MEDS ORDERED: ALBUMIN HUMAN 25% 12.5 GM/50 ML VIAL IVPB ONE (10:45)
[2021-02-08 11:50] LABS: ANISOCYTOSIS 1+; MACROCYTOSIS 1+; PLATELET ESTIMATE DECREASED
[2021-02-08] MEDS: AMINO ACIDS 4.25%/D5W 1,000 ML IV SCH (16:18)
[2021-02-08] MEDS: MULTIVIT INJ. ADULT COMBO WITH VIT K 1 COMBO 10 ML VIAL IV SCH (16:18)
[2021-02-08 17:10] LABS: BF WBC & OTHER NUCLEATED CELLS 87 /mm3
[2021-02-08 17:52] LABS: BODY FLUID MACROPHAGES 5 %; BODY FLUID MONOCYTE 6 %
[2021-02-08] MEDS: CHLORHEXIDINE GLUCONATE 4% CLEANSER FOR DECOLONIZATION TP SCH (22:59)
[2021-02-08] MEDS: LYTES/YERBA SANTA 60 ML SPRAY MM SCH (22:59)
[2021-02-09] MEDS ORDERED: PT OWN MED DRAWER 7, Y5N ONE ×5 (06:16→21:42)
[2021-02-09] MEDS: LACTULOSE 20 GM/30 ML UDC (FOR RECTAL USE ONLY) PR SCH ×2 (06:33→14:24)
[2021-02-09 06:47] LABS: HEMATOCRIT 22.3 % (32.4-45.2); HEMOGLOBIN 7.3 GM/dL (10.7-15.3); MCH 33.8 pg (25.7-33.7); MCHC 32.9 g/dl (32.0-36.0); MEAN CELL VOLUME 102.5 fl (80-96); PLATELET COUNT 74 10^3/uL (134-434); RBC 2.18 M/mm3 (3.60-5.2); RDW 18.5 % (11.6-15.6); WHITE BLOOD COUNT 3.1 K/mm3 (4.0-10.0)
[2021-02-09 07:08] LABS: CHLORIDE 117 mmol/L (98-107); SODIUM 143 mmol/L (136-145)
[2021-02-09 07:13] LABS: GLUCOSE,RANDOM 201 mg/dL (74-106)
[2021-02-09 07:19] LABS: ALBUMIN 1.1 g/dl (3.4-5.0); ANION GAP 6 MMOL/L (8-16); CO2 20 mmol/L (21-32); SGOT/AST 28 U/L (15-37); SGPT/ALT 10 U/L (13-61)
[2021-02-09 07:21] LABS: BILIRUBIN,TOTAL 0.6 mg/dL (0.2-1); TOT PROT 5.6 g/dl (6.4-8.2)
[2021-02-09 07:22] LABS: ALK PHOS 108 U/L (45-117); CREATININE 0.7 mg/dL (0.55-1.3); PHOSPHOROUS 2.6 mg/dL (2.5-4.9)
[2021-02-09 07:33] LABS: CALCIUM 6.6 mg/dL (8.5-10.1)
[2021-02-09] MEDS: MIDODRINE HCL 5 MG TABLET PO SCH ×3 (09:25→17:35)
[2021-02-09] MEDS: PANTOPRAZOLE SODIUM 40 MG VIAL IVPUSH SCH (09:25)
[2021-02-09] MEDS: LYTES/YERBA SANTA 60 ML SPRAY MM SCH (09:36)
[2021-02-09 10:02] LABS: ANISOCYTOSIS 0; MACROCYTOSIS 1+; PLATELET ESTIMATE DECREASED
[2021-02-09] MEDS ORDERED: SPIRONOLACTONE 25 MG TABLET PO SCH (12:00)
[2021-02-09] MEDS ORDERED: SPIRONOLACTONE 25 MG TABLET NGT SCH (12:30)
[2021-02-09] MEDS ORDERED: RIFAXIMIN 550 MG TABLET PO SCH (12:45)
[2021-02-09] MEDS: AMINO ACIDS 4.25%/D5W 1,000 ML IV SCH ×2 (12:48→16:15)
[2021-02-09 13:29] VITALS: BMI 29.0
[2021-02-09] MEDS ORDERED: HEPARIN NA (PORCINE) 5,000 UNITS/ML 1ML VIAL SQ SCH (14:00)
[2021-02-09] MEDS: MULTIVIT INJ. ADULT COMBO WITH VIT K 1 COMBO 10 ML VIAL IV SCH (16:15)
[2021-02-09 20:41] VITALS: BP 96/63; PULSE 55; TEMP 98.3
[2021-02-09] MEDS ORDERED: FAT EMUL/SOY/MCT/OLIV/FISH OIL 250 ML IV SCH (22:00)
[2021-02-09] MEDS ORDERED: SMOFLIPID - FAT EMUL/SOY/MCT/OLIV/FISH OIL 250 ML EMULSION IV SCH (22:00)
== END 2021-02-09 20:30 | disposition short-term general hospital (02) | DRG 264 ==
LOC: JER 12:45 → JERBED 15:39 → J8W 21:06 → JICU 01-31 07:54
PROVIDERS: ATTEND Internal Medicine Pulmonary Disease
PROC: 0W9G3ZX Drainage of Peritoneal Cavity, Percutaneous Approach, Diagnostic (ICD-10-PCS; 2021-01-28)
PROC: 0BH17EZ Insertion of Endotracheal Airway into Trachea, Via Natural or Artificial Opening (ICD-10-PCS; principal; 2021-01-31)
PROC: 5A1955Z Respiratory Ventilation, Greater than 96 Consecutive Hours (ICD-10-PCS; 2021-01-31)
PROC: 05HM33Z Insertion of Infusion Device into Right Internal Jugular Vein, Percutaneous Approach (ICD-10-PCS; 2021-01-31)
PROC: B543ZZA Ultrasonography of Right Jugular Veins, Guidance (ICD-10-PCS; 2021-01-31)
PROC: 0W9G3ZX Drainage of Peritoneal Cavity, Percutaneous Approach, Diagnostic (ICD-10-PCS; 2021-02-08)
DX: K72.90 Hepatic failure, unspecified without coma (principal); A41.9 Sepsis, unspecified organism; R65.21 Severe sepsis with septic shock; E87.2 Acidosis; I10 Essential (primary) hypertension; E66.9 Obesity, unspecified; Z68.29 Body mass index [BMI] 29.0-29.9, adult; J90 Pleural effusion, not elsewhere classified; D61.818 Other pancytopenia; E87.0 Hyperosmolality and hypernatremia; K76.6 Portal hypertension; E11.9 Type 2 diabetes mellitus without complications; K56.600 Partial intestinal obstruction, unspecified as to cause; R18.8 Other ascites; N17.9 Acute kidney failure, unspecified; J96.01 Acute respiratory failure with hypoxia; J69.0 Pneumonitis due to inhalation of food and vomit; K74.60 Unspecified cirrhosis of liver; E87.70 Fluid overload, unspecified; D69.6 Thrombocytopenia, unspecified
CPT/HCPCS: 31500; 36415; 36600; 70450-TC; 71045-TC-FY; 74018-TC-FY; 74176-TC; 74177-TC; 76705-TC; 76942-TC; 80048; 80053; 80061; 80076; 81003; 82042; 82105; 82140; 82150; 82378; 82465; 82728; 82784; 82803; 82945; 82962; 83540; 83550; 83605; 83615; 83735; 83986; 84100; 84155; 84157; 84165; 84478; 85025; 85045; 85610; 85730; 86038; 86334; 87040; 87070; 87075; 87086; 87102; 87116; 87205; 87206; 87210; 87389; 88108; 88305-TC; 93005; 93010; 94002; 97116-GP; 97161-GP; 99285-25; C9803; J0131; J1644; J3490; P9047; Q9967; U0003; U0005

== ENCOUNTER 2021-02-23 07:37 | Emergency (ER) | payer OTHER ==
[2021-02-23 08:02] VITALS: BMI 30.2
[2021-02-23] MEDS ORDERED: LACTATED RINGERS SOLUTION 1000 ML INFUS.BAG IV ONE (08:47)
[2021-02-23] MEDS ORDERED: SODIUM CHLORIDE 0.9% 500 ML INFUS.BAG IV ONE (09:40)
[2021-02-23 09:43] LABS: EPI CELLS 7 /uL (0-25.1); HYALINE CASTS 2 /uL (0-3.1); URINE APPEARANCE CLOUDY; URINE BACTERIA >9,000 /uL (0-1359); URINE BILIRUBIN NEGATIVE (NEGATIVE); URINE COLOR YELLOW; URINE GLUCOSE (UA) NEGATIVE (NEGATIVE); URINE KETONE NEGATIVE (NEGATIVE); URINE LEUK ESTERASE 3+ (NEGATIVE); URINE NITRITE NEGATIVE (NEGATIVE); URINE PROTEIN TRACE (NEGATIVE); URINE RBC 30 /uL (0-23.9); URINE UROBILINOGEN 0.2 mg/dL (0.2-1.0); URINE WBC 3100 /uL (0-25.8)
[2021-02-23 10:00] LABS: CHLORIDE 105 mmol/L (98-107); SODIUM 136 mmol/L (136-145)
[2021-02-23 10:02] LABS: CALCIUM 8.6 mg/dL (8.5-10.1)
[2021-02-23 10:03] LABS: ALBUMIN 1.4 g/dl (3.4-5.0); ANION GAP 10 MMOL/L (8-16); BLOOD UREA NITROGEN 21.8 mg/dL (7-18); CO2 20 mmol/L (21-32); GLUCOSE,RANDOM 92 mg/dL (74-106)
[2021-02-23 10:06] LABS: CREATININE 1.1 mg/dL (0.55-1.3); SGOT/AST 40 U/L (15-37); SGPT/ALT 18 U/L (13-61)
[2021-02-23 10:08] LABS: BILIRUBIN,TOTAL 1.8 mg/dL (0.2-1); TOT PROT 8.3 g/dl (6.4-8.2)
[2021-02-23 10:09] LABS: ALK PHOS 240 U/L (45-117)
[2021-02-23 10:28] LABS: BASO % 0.3 % (0-2.0); EOS % 0.4 % (0-4.5); HEMATOCRIT 27.6 % (32.4-45.2); HEMOGLOBIN 9.6 GM/dL (10.7-15.3); MCH 34.6 pg (25.7-33.7); MCHC 34.7 g/dl (32.0-36.0); MEAN CELL VOLUME 99.8 fl (80-96); MEAN PLT VOLUME 7.6 fl (7.5-11.1); MONO % 5.5 % (3.8-10.2); NEUT % 78.8 % (42.8-82.8); PLATELET COUNT 162 10^3/uL (134-434); RBC 2.77 M/mm3 (3.60-5.2); RDW 19.6 % (11.6-15.6); WHITE BLOOD COUNT 4.5 K/mm3 (4.0-10.0)
[2021-02-23 10:35] LABS: INR 1.64 (0.83-1.09); PROTHROMBIN TIME (PATIENT) 18.5 SEC (9.7-13.0)
[2021-02-23 10:38] LABS: ACTIVATED PTT 30.8 SECONDS (25.2-36.5)
[2021-02-23 10:50] LABS: VENOUS BASE EXCESS -3.3 mmol/L (-2-2); VENOUS O2 SATURATION 71.5 % (70-80); VENOUS PCO2 32.5 mmHg (38-52); VENOUS PH 7.42 (7.310-7.410)
[2021-02-23 11:03] LABS: LACTIC ACID 4.4 mmol/L (0.4-2.0)
[2021-02-23] MEDS ORDERED: PIPERACILLIN/TAZOB 4.5 GM 4.5 GM in DEXTROSE 5%-WATER 100 ML IVPB ONE (11:52)
[2021-02-23] MEDS ORDERED: KETAMINE HCL 200 MG/20 ML VIAL IVPUSH ONE (12:16)
[2021-02-23] MEDS ORDERED: LACTULOSE 20 GM/30 ML UDC (FOR RECTAL USE ONLY) PR ONE (12:18)
[2021-02-23] MEDS ORDERED: KETAMINE HCL 200 MG/20 ML VIAL ONE (12:31)
[2021-02-23] MEDS ORDERED: LACTULOSE 20 GM/30 ML UDC (FOR ORAL USE ONLY) ONE (13:32)
[2021-02-23] MEDS ORDERED: LACTULOSE 20 GM/30 ML UDC (FOR ORAL USE ONLY) PO ONE (13:40)
[2021-02-23] MEDS ORDERED: PIPERACILLIN/TAZOB 4.5 GM 4.5 GM/100 ML BAG IVPB ONE (14:03)
[2021-02-23 18:34] VITALS: BP 96/73; PULSE 62; TEMP 97.2
== END 2021-02-23 20:11 | disposition short-term general hospital (02) ==
LOC: JER 07:37
PROC: 3E03329 Introduction of Other Anti-infective into Peripheral Vein, Percutaneous Approach (ICD-10-PCS; principal; 2021-02-23)
PROC: 3E033NZ Introduction of Analgesics, Hypnotics, Sedatives into Peripheral Vein, Percutaneous Approach (ICD-10-PCS; 2021-02-23)
DX: N30.01 Acute cystitis with hematuria (principal); K72.91 Hepatic failure, unspecified with coma; R18.8 Other ascites
CPT/HCPCS: 36415; 70450-TC; 71045-TC-FY; 74177-TC; 80053; 81003; 82140; 82803; 82962; 83605; 84484; 85025; 85610; 85730; 87040; 87086; 87186; 93005; 93010; 96365; 96375; 99285-25; C9803; Q9967; U0003; U0005